=== PATIENT | female | born 1990 | race Two or more races ===

== ENCOUNTER 2023-05-27 22:33 | Inpatient (IN) | payer OTHER, MEDICAID ==
[~2023-05-27] VITALS: Ht 165.1 cm; Wt 95.9 kg
[2023-05-27 23:19] LABS: Basophils # (auto) 0.1 10 ^3/uL (0-0.2); Basophils % (auto) 0.8 % (0.0-2.0); Eosinophils # (auto) 0.1 10 ^3/uL (0-0.8); Eosinophils % (auto) 1.1 % (0.0-7.0); Hematocrit 43.4 % (36.0-46.0); Hemoglobin 14.6 g/dL (12.2-16.2); Lymphocytes % (auto) 24.7 % (10.0-50.0); Mean Corpuscular Hemoglobin 29.7 pg (28.0-32.0); Mean Corpuscular Hgb Conc. 33.6 g/dL (32.0-36.0); Mean Corpuscular Volume 88.3 fL (80.0-100.0); Monocytes # (auto) 0.6 10 ^3/uL (0-1.3); Monocytes % (auto) 7.4 % (0.0-12.0); Neutrophils # (auto) 5.4 10 ^3/uL (1.6-8.6); Red Blood Cells 4.92 10^6/uL (4.0-5.20); Red Cell Distribution Width 12.9 % (11.8-14.3); White Blood Cell 8.1 10^3/uL (4.4-10.8)
[2023-05-27 23:22] VITALS: PULSE 92; RESP 16; O2SAT 97
[2023-05-27 23:35] LABS: Alanine Aminotransferase 42 U/L (7-40); Alkaline Phosphatase 87 U/L (46-116); Anion Gap 5 (5-15); Aspartate Aminotransferase 39 U/L (13-40); BUN/Creatinine Ratio 9.2 (10.0-20.0); Blood Urea Nitrogen 7 mg/dL (9-23); Calcium 8.4 mg/dL (8.7-10.4); Carbon Dioxide 25 mmol/L (20-30); Chloride 106 mmol/L (98-107); Glucose 99 mg/dL (74-106); Lipase 44 U/L (12-53); Magnesium 1.9 mg/dL (1.6-2.6); Potassium 3.7 mmol/L (3.5-5.1); Sodium 136 mmol/L (136-145)
[2023-05-27 23:36] LABS: Albumin 4.2 g/dL (3.2-4.8); Bilirubin, Total 0.5 mg/dL (0.2-1.0); Total Protein 7.5 g/dL (5.7-8.2)
[2023-05-27 23:47] LABS: INR 0.94 (0.9-1.15); Partial Thromboplastin Time 29.1 SEC (24.5-34.5); Prothrombin Time 9.9 sec (9.3-11.8)
[2023-05-28] MEDS ORDERED: LABETALOL HCL 5 MG/ML 4ML SYRINGE IV ONE (01:45)
[2023-05-28] MEDS ORDERED: LIDOCAINE VISCOUS 2% 15ML UD PO ONE (02:00)
[2023-05-28] MEDS ORDERED: ONDANSETRON HCL 4 MG/2 ML VIAL IV ONE ×3 (02:00→07:00)
[2023-05-28] MEDS ORDERED: MAALOX PLUS or MAALOX 30 ML PO ONE (02:00)
[2023-05-28] MEDS ORDERED: PANTOPRAZOLE 40 MG/10 ML VIAL INJ IV ONE (02:00)
[2023-05-28] MEDS ORDERED: MORPHINE SULFATE 4 MG/ML SYR/VIAL IV ONE ×3 (02:00→07:00)
[2023-05-28] MEDS ORDERED: ENALAPRILAT 1.25 MG/ML-1ML VIAL IV ONE (02:15)
[2023-05-28] MEDS ORDERED: IOHEXOL 300 MG/ML 100ML BOTTLE IJ ONE (02:21)
[2023-05-28 06:57] LABS: Urine Bacteria FEW /hpf (None Seen); Urine Blood Negative /uL (Negative); Urine Clarity Clear (Clear); Urine Color Yellow (Yellow); Urine Hyaline Cast FEW /lpf (0 - 2); Urine Mucus FEW (None Seen); Urine Protein, UAD Negative (Negative); Urine Specific Gravity 1.023 (1.001-1.035); Urine Urobilinogen Normal (Negative); Urine WBC 1 /hpf (0 - 5)
[2023-05-28 07:48] VITALS: PULSE 74; RESP 17; O2SAT 95
[2023-05-28] MEDS ORDERED: KETOROLAC TROMETH 30 MG/ML 1ML VIAL IV ONE (09:30)
[2023-05-28] MEDS ORDERED: PANTOPRAZOLE 40 MG TAB PO ONE (09:30)
[2023-05-28] MEDS ORDERED: TAMSULOSIN HYDROCHLORIDE 0.4 MG CAP PO ONE (09:30)
[2023-05-28] MEDS ORDERED: LISINOPRIL 5 MG TAB PO ONE (09:30)
[2023-05-28] MEDS: SODIUM CHLORIDE 0.9% 1,000 ML IV SCH (09:57)
[2023-05-28] MEDS: ENOXAPARIN SOD 40 MG/0.4 ML SYRINGE SC SCH (10:05)
[2023-05-28 10:08] LABS: Triglycerides 102 mg/dL (< 150)
[2023-05-28 10:09] LABS: LDL Cholesterol 143 mg/dL (< 100)
[2023-05-28 10:10] LABS: Cholesterol 198 mg/dL (< 200); HDL Cholesterol 55 mg/dL (40-59)
[2023-05-28] MEDS: hydrALAZINE HCL 20 MG/ML VL IV PRN (11:25)
[2023-05-28 12:00] VITALS: PULSE 74; RESP 17; O2SAT 95
[2023-05-28] MEDS: HYDROcodone-ACET 5/325MG TAB PO PRN ×2 (13:28→19:37)
[2023-05-28] MEDS: ONDANSETRON HCL 4 MG/2 ML VIAL IV PRN ×2 (13:28→20:59)
[2023-05-28] MEDS: KETOROLAC TROMETH 30 MG/ML 1ML VIAL IV PRN (16:57)
[2023-05-28 17:33] VITALS: PULSE 74; RESP 17; O2SAT 95
[2023-05-28] MEDS ORDERED: LABE200T9 PO (17:45)
[2023-05-28 20:00] VITALS: RESP 16
[2023-05-28 22:00] VITALS: BP 150/101; PULSE 90; RESP 16; TEMP 97.6; O2SAT 95
[2023-05-28] MEDS ORDERED: MORPHINE SULFATE INJ 2 MG/ml SYRG IV ONE (22:15)
[2023-05-29] VITALS (7 sets, daily range): BP systolic 130–148; BP diastolic 81–101; PULSE 78–99; RESP 16–20; TEMP 97.8–98.3; O2SAT 97–100
[2023-05-29] MEDS: SODIUM CHLORIDE 0.9% 1,000 ML IV SCH ×2 (02:10→18:36)
[2023-05-29] MEDS: KETOROLAC TROMETH 30 MG/ML 1ML VIAL IV PRN (04:08)
[2023-05-29] MEDS: HYDROcodone-ACET 5/325MG TAB PO PRN ×4 (06:23→21:40)
[2023-05-29] MEDS: ONDANSETRON HCL 4 MG/2 ML VIAL IV PRN ×2 (06:28→12:55)
[2023-05-29 07:00] LABS: Basophils # (auto) 0.1 10 ^3/uL (0-0.2); Eosinophils # (auto) 0.1 10 ^3/uL (0-0.8); Eosinophils % (auto) 2.1 % (0.0-7.0); Hematocrit 39.5 % (36.0-46.0); Hemoglobin 13.2 g/dL (12.2-16.2); Lymphocytes # (auto) 1.5 10 ^3/uL (0.4-5.4); Lymphocytes % (auto) 30.1 % (10.0-50.0); Mean Corpuscular Hemoglobin 29.8 pg (28.0-32.0); Mean Corpuscular Hgb Conc. 33.5 g/dL (32.0-36.0); Mean Corpuscular Volume 88.8 fL (80.0-100.0); Monocytes # (auto) 0.5 10 ^3/uL (0-1.3); Monocytes % (auto) 10.2 % (0.0-12.0); Neutrophils # (auto) 2.9 10 ^3/uL (1.6-8.6); Neutrophils % (auto) 56.6 % (37.0-80.0); Nucleated Red Blood Cells % 0.1 %; Red Blood Cells 4.45 10^6/uL (4.0-5.20); White Blood Cell 5.1 10^3/uL (4.4-10.8)
[2023-05-29 07:23] LABS: Alanine Aminotransferase 39 U/L (7-40); Albumin 3.7 g/dL (3.2-4.8); Alkaline Phosphatase 75 U/L (46-116); Anion Gap 5 (5-15); Aspartate Aminotransferase 32 U/L (13-40); BUN/Creatinine Ratio 10.5 (10.0-20.0); Blood Urea Nitrogen 9 mg/dL (9-23); Calcium 8.6 mg/dL (8.5-10.1); Carbon Dioxide 25 mmol/L (20-30); Chloride 107 mmol/L (98-107); Glucose 90 mg/dL (74-106); Potassium 4.1 mmol/L (3.5-5.1); Sodium 137 mmol/L (136-145)
[2023-05-29 07:24] LABS: Bilirubin, Total 0.4 mg/dL (0.2-1.0); Total Protein 6.5 g/dL (5.7-8.2)
[2023-05-29] MEDS ORDERED: LISINOPRIL 5 MG TAB PO SCH (10:00)
[2023-05-29] MEDS: ENOXAPARIN SOD 40 MG/0.4 ML SYRINGE SC SCH (10:23)
[2023-05-29] MEDS: PANTOPRAZOLE 40 MG TAB PO SCH (10:23)
[2023-05-29] MEDS ORDERED: LISINOPRIL 5 MG TAB PO ONE (11:15)
[2023-05-29] MEDS: MORPHINE SULFATE INJ 2 MG/ml SYRG IV PRN ×2 (12:56→18:29)
[2023-05-29] MEDS: chlordiazePOXIDE HCL 25 MG CAP PO PRN ×2 (12:56→23:35)
[2023-05-29] MEDS: FOLIC ACID 1 MG, MULTIPLE VITAMIN 10 ML, MAGNESIUM SULF SDV 50% 8 MEQ, THIAMINE INJ 100... INJ SCH ×5 (13:06)
[2023-05-29] MEDS: hydrALAZINE HCL 20 MG/ML VL IV PRN (16:46)
[2023-05-29] MEDS: LORazepam 2MG/ML-1ML VIAL IV PRN (17:26)
[2023-05-29] MEDS: TAMSULOSIN HYDROCHLORIDE 0.4 MG CAP PO SCH (18:28)
[2023-05-30] VITALS (9 sets, daily range): BP systolic 139–162; BP diastolic 91–102; PULSE 87–124; RESP 17–20; TEMP 97.8–98.3; O2SAT 96–100
[2023-05-30] MEDS: MORPHINE SULFATE INJ 2 MG/ml SYRG IV PRN ×3 (04:07→20:50)
[2023-05-30] MEDS: LORazepam 2MG/ML-1ML VIAL IV PRN ×2 (05:30→23:12)
[2023-05-30 07:16] LABS: Basophils # (auto) 0.1 10 ^3/uL (0-0.2); Eosinophils # (auto) 0.1 10 ^3/uL (0-0.8); Eosinophils % (auto) 2.8 % (0.0-7.0); Hematocrit 40.6 % (36.0-46.0); Hemoglobin 13.6 g/dL (12.2-16.2); Lymphocytes # (auto) 1.4 10 ^3/uL (0.4-5.4); Lymphocytes % (auto) 26.7 % (10.0-50.0); Mean Corpuscular Hgb Conc. 33.4 g/dL (32.0-36.0); Mean Corpuscular Volume 89.7 fL (80.0-100.0); Monocytes # (auto) 0.5 10 ^3/uL (0-1.3); Monocytes % (auto) 9.8 % (0.0-12.0); Neutrophils # (auto) 3.1 10 ^3/uL (1.6-8.6); Neutrophils % (auto) 59.7 % (37.0-80.0); Nucleated Red Blood Cells % 0.1 %; Red Blood Cells 4.53 10^6/uL (4.0-5.20); Red Cell Distribution Width 12.8 % (11.8-14.3); White Blood Cell 5.1 10^3/uL (4.4-10.8)
[2023-05-30 07:22] LABS: Alanine Aminotransferase 58 U/L (7-40); Alkaline Phosphatase 77 U/L (46-116); Anion Gap 5 (5-15); Calcium 8.2 mg/dL (8.7-10.4); Carbon Dioxide 25 mmol/L (20-30); Chloride 107 mmol/L (98-107); Glucose 93 mg/dL (74-106); Potassium 3.9 mmol/L (3.5-5.1); Sodium 137 mmol/L (136-145)
[2023-05-30 07:23] LABS: Albumin 3.9 g/dL (3.2-4.8); Aspartate Aminotransferase 57 U/L (13-40); Bilirubin, Total 0.5 mg/dL (0.2-1.0); Total Protein 6.8 g/dL (5.7-8.2)
[2023-05-30 07:31] LABS: INR 0.93 (0.9-1.15); Partial Thromboplastin Time 28.8 SEC (24.5-34.5); Prothrombin Time 9.8 sec (9.3-11.8)
[2023-05-30 07:32] LABS: BUN/Creatinine Ratio 6.3 (10.0-20.0); Blood Urea Nitrogen < 5 mg/dL (9-23)
[2023-05-30] MEDS ORDERED: SODIUM CHLORIDE LOCK 10 ML ONE (08:50)
[2023-05-30] MEDS ORDERED: diphenhdrAMINE HCL 50 MG/1 ML VL ONE (08:50)
[2023-05-30] MEDS ORDERED: LIDOCAINE VISCOUS 2% 15ML UD ONE (08:50)
[2023-05-30] MEDS: PANTOPRAZOLE 40 MG TAB PO SCH (08:58)
[2023-05-30] MEDS: LISINOPRIL 5 MG TAB PO SCH (08:58)
[2023-05-30] MEDS: SODIUM CHLORIDE 0.9% 1,000 ML IV SCH (11:30)
[2023-05-30] MEDS: MIDAZOLAM HCL 5 MG/ML-1ML VIAL ONE ×3 (13:10→13:16)
[2023-05-30] MEDS: fentaNYL CITRATE 100 MCG/2 ML VL ONE ×2 (13:10→13:13)
[2023-05-30] MEDS: hydrALAZINE HCL 20 MG/ML VL IV PRN (14:17)
[2023-05-30] MEDS: FOLIC ACID 1 MG, MULTIPLE VITAMIN 10 ML, MAGNESIUM SULF SDV 50% 8 MEQ, THIAMINE INJ 100... INJ SCH ×5 (14:28)
[2023-05-30] MEDS: TAMSULOSIN HYDROCHLORIDE 0.4 MG CAP PO SCH (18:22)
[2023-05-31] MEDS: SODIUM CHLORIDE 0.9% 1,000 ML IV SCH (02:05)
[2023-05-31 05:00] VITALS: BP 151/111; PULSE 103; RESP 16; TEMP 97.6; O2SAT 96
[2023-05-31] MEDS: MORPHINE SULFATE INJ 2 MG/ml SYRG IV PRN (05:29)
[2023-05-31 06:27] LABS: Chloride 108 mmol/L (98-107); Potassium 4.1 mmol/L (3.5-5.1); Sodium 138 mmol/L (136-145)
[2023-05-31 06:28] LABS: Anion Gap 7 (5-15); Calcium 8.6 mg/dL (8.5-10.1); Carbon Dioxide 23 mmol/L (20-30)
[2023-05-31 06:33] LABS: Blood Urea Nitrogen 6 mg/dL (9-23); Glucose 87 mg/dL (74-106)
[2023-05-31 06:36] LABS: Basophils # (auto) 0.1 10 ^3/uL (0-0.2); Basophils % (auto) 0.9 % (0.0-2.0); Eosinophils # (auto) 0.2 10 ^3/uL (0-0.8); Eosinophils % (auto) 2.4 % (0.0-7.0); Hematocrit 40.5 % (36.0-46.0); Hemoglobin 13.7 g/dL (12.2-16.2); Lymphocytes # (auto) 1.7 10 ^3/uL (0.4-5.4); Lymphocytes % (auto) 27.7 % (10.0-50.0); Mean Corpuscular Hemoglobin 29.9 pg (28.0-32.0); Mean Corpuscular Hgb Conc. 33.7 g/dL (32.0-36.0); Mean Corpuscular Volume 88.8 fL (80.0-100.0); Monocytes # (auto) 0.6 10 ^3/uL (0-1.3); Monocytes % (auto) 9.2 % (0.0-12.0); Neutrophils # (auto) 3.8 10 ^3/uL (1.6-8.6); Neutrophils % (auto) 59.8 % (37.0-80.0); Nucleated Red Blood Cells % 0.1 %; Red Blood Cells 4.56 10^6/uL (4.0-5.20); Red Cell Distribution Width 13.1 % (11.8-14.3); White Blood Cell 6.3 10^3/uL (4.4-10.8)
[2023-05-31] MEDS: hydrALAZINE HCL 20 MG/ML VL IV PRN (07:10)
[2023-05-31 08:00] VITALS: PULSE 109; RESP 18; O2SAT 96
[2023-05-31] MEDS: HYDROcodone-ACET 5/325MG TAB PO PRN ×2 (08:10→12:17)
[2023-05-31 09:00] VITALS: BP 139/95; PULSE 109; RESP 19; TEMP 98; O2SAT 95
[2023-05-31] MEDS: PANTOPRAZOLE 40 MG TAB PO SCH (09:48)
[2023-05-31] MEDS: LISINOPRIL 5 MG TAB PO SCH (09:48)
[2023-05-31] MEDS: FOLIC ACID 1 MG, MULTIPLE VITAMIN 10 ML, MAGNESIUM SULF SDV 50% 8 MEQ, THIAMINE INJ 100... INJ SCH ×5 (12:00)
[2023-05-31 13:00] VITALS: BP 145/95; PULSE 117; RESP 18; TEMP 97.7; O2SAT 99
== END 2023-05-31 13:43 | disposition home or self-care (01) | DRG 368 ==
LOC: ER 22:33 → EDBD 22:33 → OVERFLOW 05-28 09:26 → WEST WING 05-28 17:29
PROVIDERS: ADMIT Nurse Practitioner Family; ATTEND Internal Medicine
PROC: 0DB48ZX Excision of Esophagogastric Junction, Via Natural or Artificial Opening Endoscopic, Diagnostic (ICD-10-PCS; 2023-05-30)
PROC: 0DB78ZX Excision of Stomach, Pylorus, Via Natural or Artificial Opening Endoscopic, Diagnostic (ICD-10-PCS; principal; 2023-05-30 13:04)
DX: K20.91 Esophagitis, unspecified with bleeding (principal); K29.71 Gastritis, unspecified, with bleeding; K44.9 Diaphragmatic hernia without obstruction or gangrene; K74.60 Unspecified cirrhosis of liver; N20.0 Calculus of kidney; K76.0 Fatty (change of) liver, not elsewhere classified; E66.01 Morbid (severe) obesity due to excess calories; I10 Essential (primary) hypertension; Y90.9 Presence of alcohol in blood, level not specified; F10.10 Alcohol abuse, uncomplicated; Z88.1 Allergy status to other antibiotic agents; Z88.8 Allergy status to other drugs, medicaments and biological substances; Z90.49 Acquired absence of other specified parts of digestive tract; Z82.49 Family history of ischemic heart disease and other diseases of the circulatory system; Z79.899 Other long term (current) drug therapy; Z68.35 Body mass index [BMI] 35.0-35.9, adult
CPT/HCPCS: 36415; 43239; 76705; 80048; 80053; 80061; 81001; 83036; 83690; 83735; 83880; 84443; 84484; 84702; 85025; 85610; 85730; 93005; C9113; G0378; J1885; J2250; J2405; J3490

== ENCOUNTER 2024-05-03 14:30 | Inpatient (IN) | payer OTHER, MEDICAID ==
[~2024-05-03] VITALS: Ht 167.6 cm; Wt 95.8 kg
[~2024-05-03 14:30] MED LIST: LABE200T9 PO
--- NOTE | 2024-05-03 14:39 | ED.PDOC ---
GI ASSESSMENT HPI Comments 33 y.o female with PMH of HTN and kidney stones, presents to the ED for a chief complaint of RLQ pain associated with nausea and vomiting that started today at 0400. Patient was seen at [facility] around 8am where she had lab work showing a WBC of 11.[address] abdominal and pelvic reading early appendicitis. Patient was transported to [facility] for higher level of care. Patient has received Zosyn, Morphine and Zofran prior to arrival. Patient no longer complains of nausea or vomiting but does state a 9/10 abdominal pain. Time Seen by MD: 14:25 Reviewed Notes: Nurses Notes, Salvationist Notes, Medications, Allergies Allergies: Coded Allergies: Ciprofloxacin (Verified Allergy, Unknown, 05/27/23) Nitrofurantoin (Verified Allergy, Unknown, 05/27/23) Home Meds Reported Medications Labetalol HCl (Labetalol Hydrochloride) 200 Mg Tab, 200 MG PO BID, TAB 05/28/23 Information Source: Patient, Emergency Med Personnel Mode of Arrival: EMS Timing: Hours Duration: Since onset Quality: Sharp Vomitus: Hard Stool: Normal Severity: Moderate Recent: None Pain Location: RLQ Modifying Factors: Nothing Associated sign and symptoms: Nausea, Vomiting, Abdominal Pain Past Medical History PAST MEDICAL HISTORY: HTN, Kidney Stones Surgical History: Cholecystectomy ER MANAGER History: No Pertinent ER MANAGER History Family History Family History: Unknown Social History Smoker: Non-Smoker Alcohol: Denies ETOH Use Drugs: Denies Drug Use Lives In: Home Constitutional: denies: chills, diaphoresis, fatigue, fever, malaise, sweats, weakness, others EENTM: denies: blurred vision, double vision, ear bleeding, ear discharge, ear drainage, ear pain, ear ringing, eye pain, eye redness, hearing loss, mouth pain, mouth swelling, nasal discharge, nose bleeding, nose congestion, nose pain, photophobia, tearing, throat pain, throat swelling, voice changes, others Respiratory: denies: cough, hemoptysis, orthopnea, SOB at rest, shortness of breath, SOB with excertion, stridor, wheezing, others Cardiovascular: denies: chest pain, dizzy spells, diaphoresis, Dyspnea on exertion, edema, irregular heart beat, left arm pain, lightheadedness, p alpitations, PND, syncope, others Gastrointestinal: reports: abdominal pain, nausea, vomiting; denies: abdomen distended, blood streaked bowels, constipated, diarrhea, dysphagia, difficulty swallowing, hematemesis, melena, poor appetite, poor fluid intake, rectal bleeding, rectal pain, others Genitourinary: denies: abnormal vagina bleeding, burning, dyspareunia, dysuria, flank pain, frequency, hematuria, incontinence, pain, , vagina discharge, urgency, others Neurological: denies: dizziness, fainting, headache, left sided numbness, left sided weakness, numbness, paresthesia, pre-existing deficit, right sided numbness, right sided weakness, seizure, speech problems, tingling, tremors, weakness, others Musculoskeletal: denies: back pain, gout, joint pain, joint swelling, muscle pain, muscle stiffness, neck pain, others Integumetry: denies: bruises, change in color, change in hair/nails, dryness, laceration, lesions, lumps, rash, wounds, others Allergic/Immunocompromised: denies: Difficulty Healing, Frequent Infections, Hives, Itching, others Hematologic/Lymphatic: denies: anemia, blood clots, easy bleeding, easy bruising, swollen glands, others Endocrine: denies: excessive hunger, excessive sweating, excessive thirst, excessive urination, flushing, intolerance to cold, intolerance to heat, unexplained weight gain, unexplained weight loss, others Psychiatric: denies: anxiety, bipolar disorder, depression, hopeless, panic disorder, schizophrenia, sleepless, suicidal, others All Other Systems: Reviewed and Negative Physical Exam General Appearance: Moderate Distress HEENT: Normal ENT Inspection, Pharynx Normal, TMs Normal Neck: Full Range of Motion, Non-Tender, Normal, Normal Inspection Respiratory: Chest Non-Tender, Lungs Clear, No Accessory Muscle Use, No Re spiratory Distress, Normal Breath Sounds Cardiovascular: No Edema, No JVD, No Murmur, No Gallop, Normal Peripheral Pulses, Regular Rate/Rhythm Breast Exam: Deferred Gastrointestinal: No Organomegaly, No Pulsatile Mass, Normal Bowel Sounds, RLQ, Soft, Tenderness Genitalia: Deferred Pelvic: Deferred Rectal: Deferred Extremities: No calf tenderness, Normal capillary refill, Normal inspection, Normal range of motion, Non-tender, No pedal edema Musculoskeletal : Apperance: Normal Neurologic: Alert, shape carver II-XII nml as Tested, No Motor Deficits, Normal Affect, Normal Mood, No Sensory Deficits Cerebellar Function: Normal Reflexes: Normal Skin: Dry, Normal Color, Warm Lymphatic: No Adenopathy Was a procedure done? Was a procedure done?: No GI differential Dx Differential Diagnosis: Appendicitis, Electrolyte Imbalance, Food Poisoning X-Ray, Labs, Meds, VS Vital Signs Date Time Temp Pulse Resp B/P (MAP) Pulse Ox O2 Delivery O2 Flow Rate FiO2 05/03/24 14:39 98.2 94 16 130/90 (103) 97 IV Hep-Lock was established The patient was given a normal saline bolus at 500 cc The patient was still having pain so was given morphine 4 mg IV push The patient was given Zofran 4 mg IV push for the nausea At this time, the patient was already received Zosyn IV piggyback We spoke with the surgeon (Dr. Ludwig) The patient is being admitted and will remain NPO The patient understands and agrees with the management The patient's diagnosis is acute appendicitis Time of 1ST Reevaluation: 14:25 Reevaluation 1ST: Unchanged Time of 2ND Reevaluation: 14:30 Patient Education/Counseling: Diagnosis, Treatment, Prognosis Family Education/Counseling: No Family Present Departure 1 Departure Time of Disposition: 15:08 Impression: Primary Impression: Intractable abdominal pain Additional Impression: Acute appendicitis Qualified Codes: K35.80 - Unspecified acute appendicitis Disposition: ADMITTED INPATIENT Admit to: Med Surg Condition: Fair Critical Care Note Critical Care Time?: No Stability Stability form required: Yes Unstable for transfer: ED Physician Assesment (Clinical assesment) I personally scribed for LUIZA MARC MD ([email or web address]) on 05/03/24 at 14:39. Electronically submitted by Yeimi Olea ([facility]). LUIZA MARC MD May 03, 2024 14:39
[2024-05-03 15:00] VITALS: PULSE 80; RESP 14; O2SAT 100
[2024-05-03] MEDS ORDERED: ONDANSETRON HCL 4 MG/2 ML VIAL IV PRN (16:00)
[2024-05-03 16:12] LABS: Partial Thromboplastin Time 25.9 SEC (24.5-34.5); Prothrombin Time 10.6 sec (9.3-11.8)
[2024-05-03] MEDS: SERTRALINE HCL 50 MG TAB PO SCH (16:15)
[2024-05-03] MEDS: SODIUM CHLORIDE 0.9% 500 ML IV ONE (16:16)
[2024-05-03] MEDS: MORPHINE SULFATE 4 MG/ML SYR/VIAL IV ONE (16:37)
[2024-05-03] MEDS: KETOROLAC TROMETH 30 MG/ML 1ML VIAL IV ONE (17:23)
[2024-05-03] MEDS: PANTOPRAZOLE 40 MG/10 ML VIAL INJ IV ONE (18:08)
--- NOTE | 2024-05-03 18:32 | DVHHP2 ---
History of Present Illness Reason for Visit: Appendicitis History of Present Illness 33-year-old female with primary medical history of hypertension and kidney stones presents to the ED for a chief complaint of right lower quadrant pain associated with nausea and vomiting that started today at 4:00 a.m. patient was seen at [facility] where she had lab work showing WBCs 11.[address] abdomen/pelvic which showed early appendicitis. Patient was then transported to [facility] for higher level of care. Patient received Zosyn, morphine and Zofran prior to arrival. Patient no longer complains of nausea or vomiting but does still complain of abdominal pain, currently at the bedside patient states 12/03. Patient denies chest pain, headache, dizziness, diaphoresis, shortness of breath, fever, or chills endorsed by the patient. Patient was admitted for further evaluation medical management. Past Medical History Hypertension and kidney stones Past Surgical History Cholecystectomy Family History Reviewed noncontributory to the management of this case Smoke: No ALCOHOL: rare Drugs: None Lives: with Family Review of Systems Constitutional: No: Fever, Chills, Sweats, Weakness, Malaise, Other Eyes: No: Pain, Vision change, Conjunctivae inflammation, Eyelid inflammation, Other, Redness ENT: No: Ear pain, Ear discharge, Nose pain, Nose discharge, Nose congestion, Mouth pain, Mouth swelling, Throat pain, Throat swelling, Other Respiratory: No: Cough, Dry, Shortness of breath, SOB with excertion, Wheezing, Hemoptysis, Pleuritic Pain, Sputum, Wheezing, Other Cardiovascular: No: Chest Pain, Palpitations, Orthopnea, Paroxysmal Noc. Dyspnea, Edema, Lt Headedness, Other Gastrointestinal: Nausea, Vomiting, Abdominal Pain; No: Diarrhea, Constipation, Melena, Hematochezia, Other Genitourinary: No Dysuria, No Frequency, No Incontinence, No Hematuria, No Retention, No Other Musculoskeletal: No: other, neck pain, shoulder pain, arm pain, back pain, hand pain, leg pain, foot pain Skin: No: Rash, Lesions, Jaundice, Bruising, Other Neurological: No: Weakness, Numbness, Incoordination, Change in speech, Confusion, Seizures, Other Allergies: Coded Allergies: Ciprofloxacin (Verified Allergy, Unknown, 05/27/23) Nitrofurantoin (Verified Allergy, Unknown, 05/27/23) Medications Current Medications Medications Dose Ordered Sig/Lefty Route Start Time Stop Time Status Last Admin Dose Admin Hydromorphone HCl 0.5 mg Q4HPRN PRN IV 05/03/24 16:00 Acetaminophen/ Hydrocodone Bitart 1 tab Q4HPRN PRN PO 05/03/24 16:00 Ondansetron HCl 4 mg Q4HPRN PRN IV 05/03/24 16:00 Sertraline HCl 100 mg DAILY PO 05/03/24 16:00 05/03/24 16:15 100 MG Hydrochlorothiazide 50 mg DAILY PO 05/04/24 10:00 Losartan Potassium 12.5 mg DAILY PO 05/04/24 10:00 Exam Vital Signs Vital Signs Date Time Temp Pulse Resp B/P (MAP) Pulse Ox O2 Delivery O2 Flow Rate FiO2 05/03/24 17:10 85 16 118/80 05/03/24 15:00 100 Room Air* 0 21 05/03/24 15:00 98.0 98.0 General Appearance: Alert, Oriented X3, Cooperative, mild distress HEENT: Atraumatic, PERRLA, EOMI, Mucous membr. moist/pink Respiratory: Clear to auscultation, Normal air movement Cardiovascular: Regular rate, Normal S1, Normal S2, No murmurs Abdominal: Normal bowel sounds, Soft, No tenderness, No hepatospenomegaly, No masses Extremities: No clubbing, No cyanosis, No edema, Normal pulses, No tenderness/swelling Skin: No rashes, No breakdown, No significant lesion Neuro: Normal gait, Normal speech, Strength at 5/5 X4 ext, Normal tone, Sensation intact, Cranial nerves 3-12 NL, Reflexes 2+ Psych/Mental Status: Mental status NL, Mood NL Labs/Xrays Labs, imaging from [facility] reviewed, ED notes reviewed Labs Test 05/03/24 15:00 Range/Units Prothrombin Time 10.6 9.3-11.8 sec Prothrombin Time INR 1.00 0.9-1.15 Activated Partial Thromboplast Time 25.9 24.5-34.5 SEC Assessment/Plan Assessment/Plan Acute appendicitis Admit to medical/surgical Consult surgery- ER physician spoke with Dr. Buchanan Surgery planned for tomorrow NPO after midnight Labs in a.m. Started on antibiotics Pain medications p.r.n. Zofran p.r.n. nausea Chronic hypertension Resume home medication FEN/PPX GI prophylaxis-Protonix IV VTE prophylaxis not indicated Clear liquid diet NPO after midnight Plan discussed with: Patient My Orders Orders - PAWAN BAKER Procedure Category Date Status Time Hydromorphone Hcl Inj PHA 05/03/24 In Process (Dilaudid Innjecti 16:00 Hydrocodone-Acet PHA 05/03/24 In Process 5/325mg Tab (Dawson 16:00 Ondansetron Hcl PHA 05/03/24 In Process (Zofran) 16:00 Sertraline Hcl PHA 05/03/24 In Process (Zoloft) 16:00 Hydrochlorothiazide PHA 05/04/24 In Process Tablet (Hydrochlorot 10:00 Losartan Tablet PHA 05/04/24 In Process (Cozaar Tablet) 10:00 Clear Liq Diet DIET 05/03/24 Transmitted Dinner Admit ADMIT 05/03/24 Transmitted 16:21 Code Status CODE 05/03/24 Transmitted 16:21 Vital Signs [facility] 05/03/24 In Process 16:21 Review Orders With [facility] 05/03/24 In Process Adm.Md 16:21 Up Ad Ketty [facility] 05/03/24 In Process 16:21 Notify Md Of Changes [facility] 05/03/24 In Process From Base 16:21 Advance Directive [facility] 05/03/24 In Process 16:21 Patient Condition ORDERS 05/03/24 Transmitted 16:21 Allergies [facility] 05/03/24 In Process 16:21 Npo After Midnight DIET 05/04/24 Transmitted Breakfast Pantoprazole PHA 05/03/24 Logged (Protonix) 17:45 Pantoprazole PHA 05/04/24 Logged (Protonix) 10:00 Date of Service: May 03, 2024 Billing Provider: PAWAN BAKER Common Visit Codes: [id number] INP/OBS CARE (HIGH) PAWAN BAKER May 03, 2024 18:32
[2024-05-03 19:30] VITALS: PULSE 83; RESP 11; O2SAT 98
[2024-05-03] MEDS: HYDROcodone-ACET 5/325MG TAB PO PRN (19:49)
[2024-05-03 21:58] VITALS: BP 120/70; PULSE 83; RESP 18; TEMP 98.1; O2SAT 96
[2024-05-03] MEDS: HYDROMORPHONE HCL 1 MG/ML INJ IV PRN (22:23)
[2024-05-03 22:52] VITALS: RESP 18
[2024-05-03 22:53] VITALS: BP 120/70; PULSE 83; RESP 18; TEMP 98.1; O2SAT 96
[2024-05-03] MEDS ORDERED: HYDR25TA4 PO (23:26)
[2024-05-03] MEDS ORDERED: HYDR50TA69 PO (23:26)
[2024-05-03] MEDS ORDERED: SERT100T PO (23:26)
[2024-05-03] MEDS ORDERED: TRAZ-228 PO (23:26)
[2024-05-03] MEDS ORDERED: LOSA100T25 PO (23:26)
[2024-05-04] VITALS (7 sets, daily range): BP systolic 102–137; BP diastolic 66–96; PULSE 80–101; RESP 16–19; TEMP 98–99.1; O2SAT 95–100
[2024-05-04 03:27] LABS: Urine Bacteria None Seen /hpf (None Seen)
[2024-05-04 03:33] LABS: Urine Blood Negative /uL (Negative); Urine Clarity Clear (Clear); Urine Color Yellow (Yellow); Urine Mucus FEW (None Seen); Urine Protein, UAD TRACE (Negative); Urine Urobilinogen Normal (Negative); Urine WBC 1 /hpf (0 - 5); Urine pH 6.5 (5.0-9.0)
[2024-05-04 03:40] LABS: Urine Specific Gravity > 1.050 (1.001-1.035)
[2024-05-04 06:31] LABS: Basophils # (auto) 0 10 ^3/uL (0-0.2); Basophils % (auto) 0.7 % (0.0-2.0); Eosinophils # (auto) 0.1 10 ^3/uL (0-0.8); Eosinophils % (auto) 2.3 % (0.0-7.0); Hematocrit 32.1 % (36.0-46.0); Hemoglobin 11.1 g/dL (12.2-16.2); Lymphocytes # (auto) 1.8 10 ^3/uL (0.4-5.4); Lymphocytes % (auto) 28.3 % (10.0-50.0); Mean Corpuscular Hgb Conc. 34.5 g/dL (32.0-36.0); Mean Corpuscular Volume 86.8 fL (80.0-100.0); Monocytes # (auto) 0.5 10 ^3/uL (0-1.3); Monocytes % (auto) 8.3 % (0.0-12.0); Neutrophils # (auto) 3.8 10 ^3/uL (1.6-8.6); Neutrophils % (auto) 60.4 % (37.0-80.0); Nucleated Red Blood Cells % 0.1 %; Platelet Count (auto) 300 10^3/uL (140-450); Red Cell Distribution Width 11.8 % (11.8-14.3); White Blood Cell 6.3 10^3/uL (4.4-10.8)
[2024-05-04 06:48] LABS: Alanine Aminotransferase 19 U/L (7-40); Albumin 3.9 g/dL (3.2-4.8); Alkaline Phosphatase 72 U/L (46-116); Anion Gap 5 (5-15); Aspartate Aminotransferase 20 U/L (13-40); BUN/Creatinine Ratio 10.1 (10.0-20.0); Bilirubin, Total 0.5 mg/dL (0.2-1.0); Blood Urea Nitrogen 11 mg/dL (9-23); Calcium 8.7 mg/dL (8.7-10.4); Carbon Dioxide 27 mmol/L (20-31); Chloride 105 mmol/L (98-107); Glucose 84 mg/dL (74-106); Potassium 3.1 mmol/L (3.5-5.1); Sodium 137 mmol/L (136-145); Total Protein 6.6 g/dL (5.7-8.2)
[2024-05-04] MEDS ORDERED: D5W/SOD CHL 0.45%/KCL 20MEQ 1,000 ML IV ONE (09:00)
[2024-05-04] MEDS: hydroCHLOROthiazide 25 MG TAB PO SCH (10:00)
[2024-05-04] MEDS: PANTOPRAZOLE 40 MG/10 ML VIAL INJ IV SCH (10:00)
[2024-05-04] MEDS: LOSARTAN POTASSIUM 25 MG TAB PO SCH (10:00)
[2024-05-04] MEDS: POTASSIUM CHL 20MEQ/100ML 100 ML IV ONE (10:06)
[2024-05-04] MEDS ORDERED: ceFAZolin 1GM VL ONE (11:55)
[2024-05-04] MEDS ORDERED: LIDOCAINE HCL 100 MG/5ML (2%) SYRG INJ IV ONE (11:55)
[2024-05-04] MEDS ORDERED: fentaNYL CITRATE 100 MCG/2 ML VL ONE (11:55)
[2024-05-04] MEDS ORDERED: MIDAZOLAM HCL 2MG/2ML 2ml VIAL (1mg/ml) ONE (11:55)
[2024-05-04] MEDS ORDERED: DexAMETHasone SOD PHOS 10MG/1ML VIAL INJ ONE (11:55)
[2024-05-04] MEDS ORDERED: PROPOFOL 10 MG/ML 20 ML IV ONE (11:55)
[2024-05-04] MEDS ORDERED: diphenhdrAMINE HCL 50 MG/1 ML VL ONE (11:55)
[2024-05-04] MEDS ORDERED: ROCURONIUM 10MG/ML 10ML VIAL IV ONE (11:55)
[2024-05-04] MEDS ORDERED: ONDANSETRON HCL 4 MG/2 ML VIAL ONE (11:56)
[2024-05-04] MEDS ORDERED: METOCLOPRAMIDE HCL 5MG/ml INJ 2ml VIAL ONE (11:56)
[2024-05-04] MEDS: ceFAZolin 2 GM/D5W100ml 100 ML IV ONE (12:14)
[2024-05-04] MEDS: BUPIVACAINE HCL 50 ML ONE (12:30)
[2024-05-04] MEDS ORDERED: SUGAMMADEX 200mg/2ml Vial (100MG/ML) IV ONE (12:52)
[2024-05-04] MEDS: D5W/SOD CHL 0.45%/KCL 20MEQ 1,000 ML IV SCH (13:00)
[2024-05-04] MEDS ORDERED: HYDROmorphone HCL 2 MG/ML VL/or syr IV PRN ×2 (13:15→14:00)
[2024-05-04] MEDS: ONDANSETRON HCL 4 MG/2 ML VIAL IV ONE (13:15)
[2024-05-04] MEDS: HYDROmorphone HCL 2 MG/ML VL/or syr IV PRN ×2 (13:50→14:58)
[2024-05-04] MEDS ORDERED: ceFAZolin 2 GM/D5W50ml 50 ML IV SCH (14:00)
[2024-05-04] MEDS ORDERED: ONDANSETRON HCL 4 MG/2 ML VIAL IV PRN (14:00)
--- NOTE | 2024-05-04 14:25 | DVHOP ---
DATE OF SURGERY: 05/04/2024 PREOPERATIVE DIAGNOSIS: Appendicitis. POSTOPERATIVE DIAGNOSIS: Appendicitis. SURGEON: Jong Buchanan MD AUCTIONEER TOBACCO: Ulises Campos. ANESTHESIA: General endotracheal. ANESTHESIOLOGIST: Dr. Houser. PROCEDURE: Laparoscopy, laparoscopic appendectomy. DESCRIPTION OF PROCEDURE: Under general endotracheal anesthesia, with the patient's skin prepped and draped supraumbilical incision was made and Veress needle inserted by the hanging drop technique to establish pneumoperitoneum to 15 mmHg pressure by insufflation with carbon dioxide. With the abdomen fully distended, the needle was removed and replaced with a 5 mm trocar port through which a 0-degree viewing laparoscope was inserted under direct vision, additional 5 and 10 mm ports inserted through the midline abdominal wall. Laparoscopy was performed revealing adhesions surrounding the appendix which was acutely inflamed. The adhesions were lysed sharply in order to mobilize the appendix. ____ was placed on tension and traced to its confluence with the cecum at its base. The appendix was divided as it emerged from the cecum with the Endo-KIP stapler equipped with vascular moris. The ____ was then removed from the peritoneal cavity. Right lower quadrant was irrigated, irrigant was aspirated. Hemostasis was meticulously inspected and found to be complete. At the termination of procedure, there was no evidence of bleeding from either the appendicectomy site or from the port sites. Instrumentation was withdrawn. Pneumoperitoneum was evacuated. Fascial defect closed using 0 Vicryl. Wounds approximated using Monocryl sutures, Dermabond glue and Steri-Strips. The patient remained stable throughout the procedure, left the operating room following an accurate needle and Sponge count. No family members were present in the waiting room. Jong Buchanan MD PF TID: [id number] RECEIPT: [id number]
[2024-05-04] MEDS: metroNIDAZOLE 500MG/100ML 100 ML IV SCH (14:30)
--- NOTE | 2024-05-04 16:00 | DVHPN2 ---
Subjective I am assuming the care of the patient from today onwards who was under the care of the hospitalist team. Patient is status post lap appendectomy. Reviewed: Care Plan Changes from previous H/P or p: No Changes Eyes: No Pain, No Vision change, No Conjunctivae inflammation, No Eyelid inflammation, No Other, No Redness ENT: No Ear pain, No Ear discharge, No Nose pain, No Nose discharge, No Nose congestion, No Mouth pain, No Mouth swelling, No Throat pain, No Throat swelling, No Other Cardiovascular: No Chest Pain, No Palpitations, No Orthopnea, No Paroxysmal Noc. Dyspnea, No Edema, No Lt Headedness, No Other Respiratory: No Cough, No Dry, No Shortness of breath, No SOB with excertion, No Wheezing, No Hemoptysis, No Pleuritic Pain, No Sputum, No Other Gastrointestinal: Nausea, Vomiting, Abdominal Pain; No Diarrhea, No Constipation, No Melena, No Hematochezia, No Other Genitourinary: No Dysuria, No Frequency, No Incontinence, No Hematuria, No Retention, No Other Musculoskeletal: No other, No neck pain, No shoulder pain, No arm pain, No back pain, No hand pain, No leg pain, No foot pain Skin: No Rash, No Lesions, No Jaundice, No Bruising, No Other Objective Vitals Vital Signs Date Time Temp Pulse Resp B/P (MAP) Pulse Ox O2 Delivery O2 Flow Rate FiO2 05/04/24 14:58 100 16 137/94 05/04/24 14:07 94 05/04/24 13:07 98.5 98.5 05/04/24 13:07 Room Air 0 99 Intake/Output Intake and Output 05/04/24 07:00 Intake Total 500 ml Output Total 300 ml Balance 200 ml Intake IV Total 500 ml Output Urine Total 300 ml Exam HEENT pupils are reactive Neck is supple CVS S1-S2 regular rate and rhythm Respiratory bilateral clear GI positive bowel sound Extremity no edema HEAD OF PRODUCT no motor deficit Medications Current Medications Medications Dose Ordered Sig/Lefty Route Start Time Stop Time Status Last Admin Dose Admin Acetaminophen/ Hydrocodone Bitart 1 tab Q4HPRN PRN PO 05/03/24 16:00 05/03/24 19:49 1 TAB Sertraline HCl 100 mg DAILY PO 05/03/24 16:00 05/03/24 16:15 100 MG Hydrochlorothiazide 50 mg DAILY PO 05/04/24 10:00 Losartan Potassium 12.5 mg DAILY PO 05/04/24 10:00 Pantoprazole Sodium 40 mg DAILY IV 05/04/24 10:00 Potassium Chloride/Dextrose/ Sod Cl 1,000 ml @ 120 mls/hr Q8H20M IV 05/04/24 13:00 Metronidazole 100 ml @ 100 mls/hr Q8H IV 05/04/24 15:00 05/04/24 14:30 100 MLS/HR Hydromorphone HCl 0.5 mg Q2HPRN PRN IV 05/04/24 14:00 05/04/24 14:58 0.5 MG Ondansetron HCl 4 mg Q4HPRN PRN IV 05/04/24 14:00 Cefazolin Sodium/ Dextrose 50 ml @ 50 mls/hr Q8HR IV 05/04/24 20:30 Labetalol HCl 200 mg BID PO 05/04/24 22:00 UNV Patient Own Medication 1 tab TID PO 05/04/24 22:00 UNV Patient Own Medication 1 tab DAILY PO 05/05/24 10:00 UNV Patient Own Medication 1 tab DAILY PO 05/05/24 10:00 UNV Patient Own Medication 1 tab QPM PO 05/04/24 18:00 UNV Laboratory Results Laboratory Tests 05/04/24 05:10 Chemistry Test 05/04/24 05:10 Albumin 3.9 g/dL (3.2-4.8) Calcium Level 8.7 mg/dL (8.7-10.4) Total Protein 6.6 g/dL (5.7-8.2) LFT Test 05/04/24 05:10 Alanine Aminotransferase (ALT) 19 U/L (7-40) Alkaline Phosphatase 72 U/L (46-116) Aspartate Amino Transferase (AST) 20 U/L (13-40) Total Bilirubin 0.5 mg/dL (0.2-1.0) Urinalysis Test 05/04/24 03:08 Urine Color Yellow (Yellow) Urine Clarity Clear (Clear) Urine pH 6.5 (5.0-9.0) Urine Specific Creole > 1.050 (1.001-1.035) Urine Protein Trace (Negative) H Urine Ketones Negative (Negative) Urine Blood Negative /uL (Negative) Urine Nitrite Negative (Negative) Urine Bilirubin Negative (Negative) Urine Urobilinogen Normal mg/dL (Negative) Urine Leukocyte Esterase Negative /uL (Negative) Urine RBC 6 /hpf (0 - 4) Urine WBC 1 /hpf (0 - 5) Urine Squamous Epithelial Cells Few /hpf (<5) Urine Bacteria None seen /hpf (None Seen) Urine Mucus Few (None Seen) Urine Glucose Normal mg/dL (Normal) Assessment/Plan Assessment/Plan 73-year-old female with a known history of hypertension, history of kidney stones presented to the hospital at [facility] with the abdominal pain nausea and vomiting found to have early appendicitis. Patient was eventually transferred to [facility] for higher level of care. 1. Acute appendicitis status post lap appendectomy 2. Abdominal pain nausea and vomiting resolved secondary to 1. 3. Hypertension -continue pain meds as needed, diet as tolerated, General surgery follow up -resume home medications. -discharge plan Plan discussed with: Patient My Orders Orders - BRYANNA HOLLIS MD Procedure Category Date Status Time Labetalol Hcl Tablet PHA 05/04/24 Logged (Normodyne Tablet) 22:00 (Nf) Hydroxyzine Hcl PHA 05/04/24 Logged 22:00 (Nf) Losartan PHA 05/05/24 Logged Potassium & Hydrochlo 10:00 (Nf) Sertraline Hcl PHA 05/05/24 Logged (Zoloft) 10:00 (Nf) Trazodone Hcl PHA 05/04/24 Logged 18:00 Date of Service: May 04, 2024 Billing Provider: BRYANNA HOLLIS MD Common Visit Codes: [id number] INP/OBS CARE(MOD) BRYANNA HOLLIS MD May 04, 2024 16:00
[2024-05-04] MEDS: ceFAZolin 2 GM/D5W50ml 50 ML IV SCH (20:05)
[2024-05-04] MEDS: LABETALOL HCL 200 MG TAB PO SCH (21:27)
[2024-05-04] MEDS: hydrOXYzine 25 MG TAB or CAP PO SCH (21:29)
[2024-05-04] MEDS: traZODone HCL 50 MG TAB PO SCH (21:29)
[2024-05-05] VITALS (7 sets, daily range): BP systolic 97–127; BP diastolic 58–93; PULSE 76–91; RESP 16–18; TEMP 97.8–99; O2SAT 95–100
[2024-05-05 04:39] LABS: Basophils # (auto) 0 10 ^3/uL (0-0.2); Basophils % (auto) 0.2 % (0.0-2.0); Eosinophils # (auto) 0 10 ^3/uL (0-0.8); Hematocrit 32.6 % (36.0-46.0); Hemoglobin 11.5 g/dL (12.2-16.2); Lymphocytes # (auto) 1.1 10 ^3/uL (0.4-5.4); Lymphocytes % (auto) 11.2 % (10.0-50.0); Mean Corpuscular Hemoglobin 30.3 pg (28.0-32.0); Mean Corpuscular Hgb Conc. 35.2 g/dL (32.0-36.0); Mean Corpuscular Volume 86.2 fL (80.0-100.0); Monocytes # (auto) 0.6 10 ^3/uL (0-1.3); Monocytes % (auto) 6.2 % (0.0-12.0); Neutrophils # (auto) 8.4 10 ^3/uL (1.6-8.6); Neutrophils % (auto) 82.4 % (37.0-80.0); Platelet Count (auto) 345 10^3/uL (140-450); Red Blood Cells 3.79 10^6/uL (4.0-5.20); Red Cell Distribution Width 11.7 % (11.8-14.3); White Blood Cell 10.2 10^3/uL (4.4-10.8)
[2024-05-05 04:41] LABS: Alanine Aminotransferase 22 U/L (7-40); Albumin 3.9 g/dL (3.2-4.8); Alkaline Phosphatase 85 U/L (46-116); Anion Gap 6 (5-15); Aspartate Aminotransferase 26 U/L (13-40); BUN/Creatinine Ratio 8.4 (10.0-20.0); Bilirubin, Total 0.3 mg/dL (0.2-1.0); Blood Urea Nitrogen 7 mg/dL (9-23); Calcium 8.8 mg/dL (8.7-10.4); Carbon Dioxide 24 mmol/L (20-31); Chloride 107 mmol/L (98-107); Glucose 91 mg/dL (74-106); Magnesium 1.8 mg/dL (1.6-2.6); Potassium 3.9 mmol/L (3.5-5.1); Sodium 137 mmol/L (136-145); Total Protein 6.7 g/dL (5.7-8.2)
--- NOTE | 2024-05-05 07:22 | DVHINCON2 ---
DATE OF CONSULTATION: 05/04/2024 SURGICAL CONSULTATION HISTORY OF PRESENT ILLNESS: The patient is being evaluated for possible appendectomy. She is a 33-year-old female who has had abdominal pain for the last month. The pain steadily increased until it was intolerable yesterday and she presented to [facility] in [place], where she was evaluated and had a CT scan done, which demonstrated acute appendicitis. The patient was transferred to this facility for definitive treatment. She has a history of hypertension and lithotripsy for a left kidney stone. The patient has a previous cholecystectomy done at [facility]. 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 REVIEW OF SYSTEMS: With the exception of nausea, vomiting, and abdominal pain, there is no contributory information on 12 systems reviewed. PHYSICAL EXAMINATION: GENERAL: Reveals well-developed, well-nourished female, in mild distress. HEENT: Pupils are equal, round, react to light equally. Sclerae nonicteric. Extraocular motion is intact. Uvula midline. Trachea midline. Carotids are full without bruits. Jugular veins are collapsed. HEART: Regular rate and rhythm without murmur or gallop. ABDOMEN: Tender in the right lower quadrant with rebound tenderness and guarding. There is no palpable organomegaly. LABORATORY DATA: The patient's PT and PTT are normal. DIAGNOSES: Acute appendicitis. ASSESSMENT AND PLAN: The risks, potential complications of laparoscopic, possibly open appendectomy were discussed in great detail with the patient. Jong Buchanan MD PF TID: [id number] RECEIPT: [id number]
[2024-05-05] MEDS: Losartan Potassium & Hydrochlo (Hyzaar) 1 TAB PO SCH (10:00)
[2024-05-05] MEDS: SERTRALINE HCL 50 MG TAB PO SCH (10:50)
--- NOTE | 2024-05-05 14:24 | DVHPN2 ---
Progress Note Date Seen: May 05, 2024 Medical Necessity Reason Pt with a Central, PICC or Fol: No Subjective Patient reports: No new complaints, Feels better Review of Systems: HEENT:Normal, CVS:Normal, RESPIRATORY:Normal, GI:Normal, :Normal, MSK:Normal, NEURO:Normal Objective vital signs Vital Sign Date Time Temp Pulse Resp B/P (MAP) Pulse Ox O2 Delivery O2 Flow Rate FiO2 05/05/24 11:52 99.0 91 16 113/80 (91) 98 99.0 05/05/24 08:00 Room Air* 0 21 Total Intake and Output 05/04/24 05/04/24 05/05/24 15:00 23:00 07:00 Intake Total 110 ml 400 ml 240 ml Output Total 400 ml 0 ml Balance 110 ml 0 ml 240 ml medications Current Medications Medications Dose Ordered Sig/Lefty Route Start Time Stop Time Status Last Admin Dose Admin Acetaminophen/ Hydrocodone Bitart 1 tab Q4HPRN PRN PO 05/03/24 16:00 05/05/24 13:12 1 TAB Pantoprazole Sodium 40 mg DAILY IV 05/04/24 10:00 05/05/24 10:49 40 MG Potassium Chloride/Dextrose/ Sod Cl 1,000 ml @ 120 mls/hr Q8H20M IV 05/04/24 13:00 05/05/24 07:01 120 MLS/HR Metronidazole 100 ml @ 100 mls/hr Q8H IV 05/04/24 15:00 05/05/24 07:17 100 MLS/HR Hydromorphone HCl 0.5 mg Q2HPRN PRN IV 05/04/24 14:00 05/05/24 10:51 0.5 MG Ondansetron HCl 4 mg Q4HPRN PRN IV 05/04/24 14:00 Cefazolin Sodium/ Dextrose 50 ml @ 50 mls/hr Q8HR IV 05/04/24 20:30 05/05/24 06:06 50 MLS/HR Hydroxyzine Pamoate 50 mg TID PO 05/04/24 22:00 05/05/24 13:39 50 MG Patient Own Medication 1 tab DAILY PO 05/05/24 10:00 Sertraline HCl 100 mg DAILY PO 05/05/24 10:00 05/05/24 10:50 100 MG Trazodone HCl 100 mg QPM PO 05/04/24 18:00 05/04/24 21:29 100 MG Examination: GENERAL:Normal, HEENT:Normal, NECK:Normal, LUNGS:Normal, CVS:Normal, ABDOMEN:Normal laboratory and microbiology Laboratory Tests 05/05/24 03:31 Test 05/05/24 03:31 Range/Units Serum Glucose 91 74-106 mg/dL Problem List/Assessment/Plan Problem List/Assessment/Plan 05/05/24 wounds clean dry and intact, abdomen soft, non distended, appropriately tender, some pain , patient to ambulate, advance diet, ok to discharger per surgery in 24 hours, send home with antibiotics patient to follow up in clinic in two weeks Plan discussed with: Patient, Other JENELLE PAREDES [employer]ING [employer] May 05, 2024 14:24
[2024-05-05] MEDS ORDERED: AUG875T PO (14:54)
[2024-05-05] MEDS ORDERED: HYDR-4902 PO (14:55)
[2024-05-05] MEDS ORDERED: NALO4SPR2 (14:55)
--- NOTE | 2024-05-05 15:22 | DVHDS2 ---
Discharge Summary Date of Admission May 03, 2024 at 16:21 Date of Discharge: May 05, 2024 Labs/Diagnostic Data: Laboratory Results Test 05/05/24 03:31 05/04/24 05:10 05/04/24 03:08 05/03/24 15:00 White Blood Count 10.2 10^3/uL (4.4-10.8) Red Blood Count 3.79 10^6/uL (4.0-5.20) Hemoglobin 11.5 g/dL (12.2-16.2) Hematocrit 32.6 % (36.0-46.0) Mean Corpuscular Volume 86.2 fL (80.0-100.0) Mean Corpuscular Hemoglobin 30.3 pg (28.0-32.0) Mean Corpuscular Hemoglobin Concent 35.2 g/dL (32.0-36.0) Red Cell Distribution Width 11.7 % (11.8-14.3) Platelet Count 345 10^3/uL (140-450) Mean Platelet Volume 7.9 fL (6.9-10.8) Neutrophils (%) (Auto) 82.4 % (37.0-80.0) Lymphocytes (%) (Auto) 11.2 % (10.0-50.0) Monocytes (%) (Auto) 6.2 % (0.0-12.0) Eosinophils (%) (Auto) 0.0 % (0.0-7.0) Basophils (%) (Auto) 0.2 % (0.0-2.0) Neutrophils # (Auto) 8.4 10 ^3/uL (1.6-8.6) Lymphocytes # (Auto) 1.1 10 ^3/uL (0.4-5.4) Monocytes # (Auto) 0.6 10 ^3/uL (0-1.3) Eosinophils # (Auto) 0 10 ^3/uL (0-0.8) Basophils # (Auto) 0 10 ^3/uL (0-0.2) Nucleated Red Blood Cells 0.0 % Sodium Level 137 mmol/L (136-145) Potassium Level 3.9 mmol/L (3.5-5.1) Chloride Level 107 mmol/L (98-107) Carbon Dioxide Level 24 mmol/L (20-31) Anion Gap 6 (5-15) Blood Urea Nitrogen 7 mg/dL (9-23) Creatinine 0.83 mg/dL (0.550-1.02) Glomerular Filtration Rate Calc 95 mL/min (>90) BUN/Creatinine Ratio 8.4 (10.0-20.0) Serum Glucose 91 mg/dL (74-106) Calcium Level 8.8 mg/dL (8.7-10.4) Magnesium Level 1.8 mg/dL (1.6-2.6) Total Bilirubin 0.3 mg/dL (0.2-1.0) Aspartate Amino Transferase (AST) 26 U/L (13-40) Alanine Aminotransferase (ALT) 22 U/L (7-40) Alkaline Phosphatase 85 U/L (46-116) Total Protein 6.7 g/dL (5.7-8.2) Albumin 3.9 g/dL (3.2-4.8) Beta HCG, Quantitative 0.1 mIU/mL (1.5-4.2) Urine Color Yellow (Yellow) Urine Clarity Clear (Clear) Urine pH 6.5 (5.0-9.0) Urine Specific [place] > 1.050 (1.001-1.035) Urine Protein Trace (Negative) Urine Ketones Negative (Negative) Urine Blood Negative /uL (Negative) Urine Nitrite Negative (Negative) Urine Bilirubin Negative (Negative) Urine Urobilinogen Normal mg/dL (Negative) Urine Leukocyte Esterase Negative /uL (Negative) Urine RBC 6 /hpf (0 - 4) Urine WBC 1 /hpf (0 - 5) Urine Squamous Epithelial Cells Few /hpf (<5) Urine Bacteria None seen /hpf (None Seen) Urine Mucus Few (None Seen) Urine Glucose Normal mg/dL (Normal) Prothrombin Time 10.6 sec (9.3-11.8) Prothrombin Time INR 1.00 (0.9-1.15) Activated Partial Thromboplast Time 25.9 SEC (24.5-34.5) Other Laboratory Tests 05/05/24 03:31 Brief Hx & Hospital Course: Continue on female with known history of hypertension, anxiety disorder, chronic insomnia initially presented to hospitalization amlodipine nausea vomiting presented at [facility]. Patient was diagnosed with acute appendicitis. Eventually patient was transferred to higher level of care at [facility] found continuation of care and surgical interventions. Patient underwent laparoscopic appendectomy. Dr. Buchanan cleared the patient to be discharged on p.o. antibiotics and pain pills. Patient currently stable to be discharged as she was tolerating diet. Please return to ER if he has any consent. He was found to be Dr. Buchanan intwo weeks. Condition at Discharge: Stable Final Diagnosis/Problems List 1. Acute appendicitis status post lap appendectomy 2. Abdominal pain nausea and vomiting resolved secondary to 1. 3. Hypertension 4. Anxiety disorder 5. Chronic insomnia Discharge Disposition: Home SNF Discharge Will this Physician continue t: No Discharge Instruct/Medications Diet: Cardiac 2g Na,low cholest Activity: See Comment Activity comment: No driving, no signing of legal documents, no planning on heavy machinery while on narcotics Follow Up/Referral: Follow up with the PCP in 1-2 weeks Follow up with Dr. Buchanan in 1-2 weeks Medications: Augmentin, [place], Narcan as prescribed Discharge Statement: "Patient was advised to return to the ER or call 911 if any headaches, dizziness, shortness of breath, chest pain, abdominal pain, bleeding, fevers, or worsening of medical condition. Patient was counseled about treatment plan, medications, possible side effects, patientverbalized understanding. All questions were answered to the best of my ability. This discharge took greater then 30 minutes in planning, reviewing documentation, counseling the patient, and discussing with other team members." ASSESSMENT ASSESSMENT Assessment 1. Acute appendicitis status post lap appendectomy 2. Abdominal pain nausea and vomiting resolved secondary to 1. 3. Hypertension 4. Anxiety disorder 5. Chronic insomnia Date of Service: May 05, 2024 Billing Provider: BRYANNA HOLLIS MD Common Visit Codes: 67077-EYI/OBS DISCH DAY >30min BRYANNA HOLLIS MD May 05, 2024 15:22
[2024-05-06 01:00] VITALS: BP 108/65; PULSE 61; RESP 18; TEMP 98.1; O2SAT 98
[2024-05-06 05:00] VITALS: BP 138/86; PULSE 83; RESP 18; TEMP 98.1; O2SAT 99
[2024-05-06 08:00] VITALS: RESP 15
[2024-05-06 08:40] LABS: Hepatitis B Surface Antigen Negative (Negative)
[2024-05-06 09:00] VITALS: BP 111/83; PULSE 73; RESP 21; TEMP 98.3; O2SAT 95
[2024-05-06 09:02] LABS: Hepatitis C Antibody Negative (Negative)
[2024-05-06 09:18] VITALS: BP 113/80; PULSE 91; TEMP 36.8
== END 2024-05-06 10:55 | disposition home or self-care (01) | DRG 399 ==
LOC: EDBD 14:30 → ER 14:30 → OVERFLOW 16:21 → CENTRAL 21:58
PROVIDERS: ADMIT Registered Nurse General Practice; ATTEND Internal Medicine
PROC: 0DTJ4ZZ Resection of Appendix, Percutaneous Endoscopic Approach (ICD-10-PCS; principal; 2024-05-04 12:14)
DX: K35.80 Unspecified acute appendicitis (principal); I10 Essential (primary) hypertension; F41.9 Anxiety disorder, unspecified; F51.04 Psychophysiologic insomnia; Z87.442 Personal history of urinary calculi; Z88.1 Allergy status to other antibiotic agents; Z90.49 Acquired absence of other specified parts of digestive tract
CPT/HCPCS: 36415; 80053; 81001; 83735; 84702; 85025; 85610; 85730; 86803; 86850; 86900; 86901; 87070; 87075; 87205; 87340; G0378; J0690; J1100; J1885; J2250; J2405; J2470; J2704; J3480; J3490

== ENCOUNTER 2024-12-21 16:57 | Inpatient (IN) | payer MEDICAID, OTHER ==
[~2024-12-21] VITALS: Ht 167.6 cm; Wt 87.2 kg
[~2024-12-21 16:57] MED LIST changes: +AUG875T PO; +HYDR-4902 PO; +HYDR50TA69 PO; +LOSA100T25 PO; +NALO4SPR2; +SERT100T PO; +TRAZ-228 PO
--- NOTE | 2024-12-21 17:05 | ECG ---
[facility] Test Date: 2024-12-21 Test Time: 17:04:26 Pat Name: MARY BETH MORALES Department: ER Room: Gender: F Cobol Programmer: AJ : 1990 Requested By: ALBER CHANG Order Number: [id number] Reading MD: Fabrizio Puckett Measurements Intervals [place] Rate: 125 P: 59 [place]: 126 QRS: 10 QRSD: 85 T: 53 QT: 342 QTc: 494 Interpretive Statements Sinus tachycardia Borderline prolonged QT interval Electronically Signed On 12-21-2024 20:17:07 PDT by Fabrizio Puckett Please click the below link to view image of tracing.
--- NOTE | 2024-12-21 17:34 | ED.PDOC ---
HPI Comments 34y F who presents to the ED for chief complaint of palpitations. - pt states she has been having palpitations for the past 3 months - pt states she is in the and relocated and has past history of HTN and prescribed losartan/HCTZ combination drug - pt states she has been out of her medications for the past 3 months and has been having palpitations with dizziness - pt states she has noticed recently after waking from nap over the past few months, she has been having dizzy spells with associated palpitations - pt otherwise has been taking caffeine, energy drinks and pre-workout over the past few months - pt is also taking wegovy at this time - pt in the ED, has noted heart rate of 122 and BP of 165/127 and 163/128 on repeat measurement with otherwise stable vitals - pt otherwise denies any other symptoms at this time past medical history: HTN, kidney stones past surgical history: appendectomy, cholecystectomy, lithotripsy allergies: denies medications: HCTZ/ losartan social history: denies tobacco use, denies ETOH use, denies drug use HPI: Poor Historian. REVIEW OF SYSTEMS: CONSTITUTIONAL: Denies acute: fever, diaphoresis, chills, generalized weakness. HEAD: Denies acute: headache, photophobia Eyes: Denies acute: Double vision, vision loss, eye pain, eye discharge. EARS: Denies acute: tinnitus, hearing loss, ear discharge, ear pain, THROAT: Denies acute: sore throat, swelling, difficulty swallowing , pain with swallowing, change in voice. NECK: Denies acute: neck pain, neck swelling, stiff neck. HEART: Denies acute : chest pain, LUNGS: Denies acute: SOB, wheezing, cough, hemoptysis ABDOMEN: Denies acute: abdominal pain, Nausea, Vomiting, diarrhea, melena , hematemesis, hematochezia SKIN: Denies acute: rash, redness, lesions, itchiness. EXTREMITIES: Denies acute: calf pain, numbness, tingling, weakness, denies pain in extremity. Denies acute: Low back pain. Neuro: Denies acute: focal neurological deficit, motor or sensory focal neurological deficit, tremors, seizure like activity, confusion, dizziness, change in mental status, loss of bowel or bladder function, cauda equina like symptoms. : Denies acute: dysuria, hematuria, flank pain, increase in urinary frequency. PSYCH: Denies acute: hallucination, suicidal ideation, homicidal ideation. FEMALE: Denies acute: abnormal vaginal bleeding, foul odor, unusual discharge. PHYSICAL EXAM: General: ---mild-----acute distress, awake and alert. Head: normocephalic, atraumatic. Neck: supple, trachea is midline, no swelling. Throat: Normal phonation. Eyes:, no erythema, no purulent discharge, no proptosis, no icterus. Heart: regular tachycardic, no significant murmur appreciated. Lungs: no apparent respiratory distress, Able to speak in full sentences. No wheezing, no rhonchi, no crackles. No stridors Clear to auscultation bilaterally. Abdomen: non tender to palpation, non distended, soft, no guarding, no rebound, + bowel sounds. Neuro: Awake, Alert, oriented to name, self, situation, follows commands GCS=15. Speech is normal. Skin: no petechia, no purpura, no cyanosis, non-pale, not jaundice. Lower extremities: --no - Pitting edema no deformity, no focal swelling, no calf TTP. Makes eye contact. moves all four extremities. Face: no apparent facial droop. Ambulating in the ED independently. ED COURSE: DISCLAIMER: This medical document was created using an electronic medical record system with voice recognition software and computerized dictation system. Although this document has been carefully reviewed, there might still be some phonetic and typographical errors. Occasional wrong-word or "sound-alike" substitutions may have occurred due to the inherent limitations of voice recognition software. These areas are purely typographical due to imperfections of the software programs and do not reflect any compromise in the patient's medical care. Please read the chart carefully and recognize, using context, where these substitutions have occurred. Chief Complaint: Palpitations Time Seen by MD: 17:02 Reviewed Notes: Medications, Allergies Allergies: Coded Allergies: Ciprofloxacin (Verified Allergy, Unknown, 05/27/23) Nitrofurantoin (Verified Allergy, Unknown, 05/27/23) Home Meds Active Scripts Hydrocodone-Acetaminophen (Hydrocodone Bitartrate/AC 5-325 mg) 1 Tab Tab, 1 TAB PO Q6HP PRN, #10 TAB Prov:BRYANNA HOLLIS MD 12/23/24 Cefdinir (Cefdinir) 300 Mg Cap, 1 CAP PO BID for 3 Days, #6 CAP Prov:BRYANNA HOLLIS MD 12/23/24 Hctz (Hydrochlorothiazide) 25 Mg Tab, 25 MG GT DAILY, #30 TAB Prov:BRYANNA HOLLIS MD 12/23/24 Labetalol HCl (Labetalol HCl) 200 Mg Tab, 100 MG PO Q12HR for 30 Days, #30 TAB Prov:BRYANNA HOLLIS MD 12/23/24 Naloxone HCl (Narcan) 4 Mg/0.1 Ml Spr, 4 MG NA [employer] [place], #2 SPRAY Prov:BRYANNA HOLLIS MD 05/05/24 Reported Medications Prazosin Hcl (Minipres) 1 Mg Cp, 1 CAP PO QPM, #30 CAP 2 Refills 12/22/24 Sertraline Hcl (Zoloft) 100 Mg Tab, 1 TAB PO DAILY, #30 TAB 5 Refills 05/03/24 Trazodone Hcl (Trazodone Hcl) 100 Mg Tab, 1 TAB PO QPM, #30 TAB 1 Refill 05/03/24 Hydroxyzine Hcl (Hydroxyzine Hcl) 50 Mg Tab, 1 TAB PO TID, #90 TAB 2 Refills 05/03/24 Discontinued Reported Medications Losartan Potassium & Hydrochlo (Hyzaar) 1 Tab Tab, 1 TAB PO DAILY, #30 TAB 5 Refills 05/03/24 Information Source: Patient Mode of Arrival: Ambulatory Past Medical History PAST MEDICAL HISTORY: HTN, Kidney Stones Surgical History: Cholecystectomy 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 Was a procedure done?: No CP Differential Dx Differential Diagnosis: A-fib, A-Flutter, Angina, Anxiety / Panic Attack, Atrial Dysrhythmia, AV Block 1st Degree, AV Block 2nd Degree, AV Block 3rd Degree, Digoxin Toxicity, Electrolyte Disorder, Heart Failure, Hyperthyroidism, Hyperventilation, Hypoxia, MAT, LA, PAC's, PSVT, Pulmonary Embolus, PVC's, Renal Failure, Sinus Tachycardia, Torsades De Pointes, Ventricular Dysrhythmia, V-Fib, V-Tach, WPW X-Ray, Labs, Meds, VS Vital Signs Date Time Temp Pulse Resp B/P (MAP) Pulse Ox O2 Delivery O2 Flow Rate FiO2 12/21/24 22:30 106 22 130/89 (103) 96 12/21/24 22:15 105 21 134/96 (109) 97 12/21/24 22:00 110 15 145/105 (118) 98 12/21/24 22:00 105 131/93 12/21/24 22:00 145/105 12/21/24 21:45 114 19 133/93 (106) 98 12/21/24 21:30 101 23 150/106 (121) 96 12/21/24 21:15 108 16 144/100 (115) 95 12/21/24 21:00 102 16 161/119 (133) 98 12/21/24 21:00 144/100 12/21/24 21:00 161/119 12/21/24 20:45 102 18 161/119 (133) 98 12/21/24 20:45 161/119 12/21/24 20:35 97 12/21/24 20:17 102 149/105 12/21/24 19:40 92 18 97 Room Air* 0 21 12/21/24 19:30 99.2 92 18 161/115 (130) 97 99.2 12/21/24 18:54 97 169/102 12/21/24 18:53 97 169/102 12/21/24 18:37 97 22 168/117 (134) 97 12/21/24 18:31 101 18 186/140 (155) 98 12/21/24 18:06 103 176/133 12/21/24 18:06 103 176/133 12/21/24 18:00 103 16 176/133 (147) 98 12/21/24 17:36 120 16 98 Room Air* 0 12/21/24 17:36 120 177/127 12/21/24 17:05 99.2 122 18 165/127 (140) 97 99.2 163/128 (140) 12/21/24 17:04 125 Lab Test 12/21/24 18:14 12/21/24 17:05 12/21/24 17:00 Range/Units Troponin I High Sensitivity 4 4 </=34 ng/L White Blood Count 11.4 H 4.4-10.8 10^3/uL Red Blood Count 4.91 4.0-5.20 10^6/uL Hemoglobin 14.8 12.2-16.2 g/dL Hematocrit 42.8 36.0-46.0 % Mean Corpuscular Volume 87.2 80.0-100.0 fL Mean Corpuscular Hemoglobin 30.1 28.0-32.0 pg Mean Corpuscular Hemoglobin Concent 34.5 32.0-36.0 g/dL Red Cell Distribution Width 13.1 11.8-14.3 % Platelet Count 400 140-450 10^3/uL Mean Platelet Volume 7.9 6.9-10.8 fL Neutrophils (%) (Auto) 66.6 37.0-80.0 % Lymphocytes (%) (Auto) 22.4 10.0-50.0 % Monocytes (%) (Auto) 9.8 0.0-12.0 % Eosinophils (%) (Auto) 0.5 0.0-7.0 % Basophils (%) (Auto) 0.7 0.0-2.0 % Neutrophils # (Auto) 7.6 1.6-8.6 10 ^3/uL Lymphocytes # (Auto) 2.6 0.4-5.4 10 ^3/uL Monocytes # (Auto) 1.1 0-1.3 10 ^3/uL Eosinophils # (Auto) 0.1 0-0.8 10 ^3/uL Basophils # (Auto) 0.1 0-0.2 10 ^3/uL Nucleated Red Blood Cells 0.1 % Sodium Level 141 136-145 mmol/L Potassium Level 3.6 3.5-5.1 mmol/L Chloride Level 101 98-107 mmol/L Carbon Dioxide Level 26 20-31 mmol/L Anion Gap 14 5-15 Blood Urea Nitrogen 11 9-23 mg/dL Creatinine 1.08 H 0.550-1.02 mg/dL Glomerular Filtration Rate Calc 69 >90 mL/min BUN/Creatinine Ratio 10.2 10.0-20.0 Serum Glucose 97 74-106 mg/dL Calcium Level 9.8 8.7-10.4 mg/dL Magnesium Level 1.4 L 1.6-2.6 mg/dL Total Bilirubin 0.5 0.2-1.0 mg/dL Aspartate Amino Transferase (AST) 39 H <34 U/L Alanine Aminotransferase (ALT) 31 7-40 U/L Alkaline Phosphatase 89 46-116 U/L Total Protein 8.2 5.7-8.2 g/dL Albumin 4.8 3.2-4.8 g/dL Urine Color Yellow Yellow Urine Clarity Hazy H Clear Urine pH 8.0 5.0-9.0 Urine Specific [place] 1.022 1.001-1.035 Urine Protein 1+ H Negative Urine Ketones Negative Negative Urine Blood Negative Negative /uL Urine Nitrite 2+ H Negative Urine Bilirubin Negative Negative Urine Urobilinogen Normal Negative mg/dL Urine Leukocyte Esterase 1+ Negative /uL Urine RBC 1 0 - 4 /hpf Urine Microscopic WBC 26 H 0-5 /HPF Urine Squamous Epithelial Cells Few <5 /hpf Urine Amorphous Crystals Few None Seen /hpf Urine Bacteria Few H None Seen /hpf Urine Mucus Few None Seen Urine Glucose Normal Normal mg/dL Urine Test Negative Negative Urine Opiates Screen Neg NEGATIVE Urine Fentanyl Screen Neg NEGATIVE Urine Barbiturates Screen Neg NEGATIVE Urine Phencyclidine Screen Neg NEGATIVE Urine Amphetamines Screen Neg NEGATIVE Urine Benzodiazepines Screen Neg NEGATIVE Urine Cocaine Screen Neg NEGATIVE Urine Cannabinoids Screen Neg NEGATIVE Microbiology Date/Time Source Procedure Growth Status 12/21/24 17:00 Voided Urine Urine Culture - Final Complete [place] [id number] Ph: [phone] DIAGNOSTIC IMAGING Diagnostic Imaging Report : [id number] Signed PATIENT: MARY BETH MORALESACCT: [id number] UNIT: [id number] : 1990 LOC: ER ROOM / BED: / AGE / SEX: 34 / F ADM STATUS: REG ER SERVICE 1826 ORDERING PHYSICIAN: ALBER CHANG DO PROCEDURE(s): HWOCT - HEAD WITHOUT CONTRAST REASON: HTN ORDER NUMBER(s): [id number], ACCESSION NUMBER(s): [id number] EXAM: CT HEAD WITHOUT CONTRAST INDICATION: HTN TECHNIQUE: CT of the head without intravenous contrast. Radiation Dose : 1. Head: CT Dose: CTDI volume is 53.99 mGy. Dose-length product is 863.9 mGy*cm The dose indicators for CT are the volume Computed Tomography (CT) Dose Index (CTDIvol) and the Dose Length Product (DLP), and are measured in units of mGy and mGy-cm, respectively. These indicators are not patient dose, but values generated from the CT scanner acquisition factors. The report includes radiation exposure data for exposures received during this examination. COMPARISON: None FINDINGS: There is no evidence of acute intracranial hemorrhage, extra-axial collection, mass effect, midline shift, herniation or hydrocephalus. The ventricles, sulci and cisterns are age appropriate. The nicole-white differentiation is intact. The visualized paranasal sinuses and mastoid air cells are clear. The surrounding soft tissues and osseous structures are unremarkable. IMPRESSION: No acute intracranial abnormality. Radiation optimization: All CT scans at this facility use at least one of these dose optimization techniques: automated exposure control mA and/or kV adjustment per patient size (includes targeted exams where dose is matched to clinical indication) or iterative reconstruction. ATED BY: ADAL CLEMENT MD DICTATED DATE/TIME: 12/21/241907 SIGNED BY: ADAL CLEMENT MD SIGNED DATE/TIME: 12/21/241907 CC: [place] [address] Ph: [phone] DIAGNOSTIC IMAGING Diagnostic Imaging Report : [id number] Signed PATIENT: MARY BETH MORALESACCT: [id number] UNIT: [id number] : 1990 LOC: ER ROOM / BED: / AGE / SEX: 34 / F ADM STATUS: REG ER SERVICE 08 ORDERING PHYSICIAN: ALBER CHANG DO PROCEDURE(s): CXRP - CHEST PORTABLE REASON: Palpitations, tachycardic, hypertension ORDER NUMBER(s): [id number], ACCESSION NUMBER(s): [id number] CHEST RADIOGRAPH Indication: Palpitations, tachycardic, hypertension Technique: Single frontal view of the chest was obtained Comparison: None FINDINGS: Lines and Tubes: None Lungs: No focal consolidation. Pleura: No effusion. No pneumothorax. Cardiomediastinal contours: Unremarkable Bones: No acute osseous abnormality. IMPRESSION: 1. No acute cardiopulmonary disease. ATED BY: ALFREDITO QUINN Jr., DO DICTATED DATE/TIME: 12/21/241818 SIGNED BY: ALFREDITO QUINN Jr., SIGNED DATE/TIME: 12/21/241818 CC: Time of 1ST Reevaluation: 00:00 Reevaluation 1ST: N/A Patient Education/Counseling: Diagnosis, Treatment Family Education/Counseling: No Family Present Comments Patient presented with the above HPI.------workup was initiated. patient was found with the above mentioned diagnosis. the following medications were ordered: please refer to order lists of meds and tests obtained by myself Dr. Chang. Patient ED course and VS have been stabilized. Patient has been reassessed in the ED and remained in a stable condition. Pertinent incidental findings were discussed with the patient and/or family. Patient/family voices understanding and is agreeable with plan. Patient has been observed in the ED adequate length of time to insure improvement/stability. Escalation of care considered: Consideration of escalation to observation or admission Patient was ADMITTED to the medicine team for further evaluation and treatment of their presentation. All the reports of any imaging studies that were ordered by myself were reviewed by myself. SEPSIS Sepsis Screen Physician Orders Electrocardigram (12/21/24 17:02) Electrocardigram (12/21/24 18:02) Electrocardigram (12/21/24 20:02) [employer] (12/21/24 ) Chest Portable (12/21/24 17:09) Head Without Contrast (12/21/24 18:26) Code Status (12/21/24 20:53) Oxygen Per Hour (12/21/24 20:53) Vital Signs Date Time Temp Pulse Resp B/P (MAP) Pulse Ox O2 Delivery O2 Flow Rate FiO2 12/21/24 22:30 106 22 130/89 (103) 96 12/21/24 22:15 105 21 134/96 (109) 97 12/21/24 22:00 110 15 145/105 (118) 98 12/21/24 22:00 105 131/93 12/21/24 22:00 145/105 12/21/24 21:45 114 19 133/93 (106) 98 12/21/24 21:30 101 23 150/106 (121) 96 12/21/24 21:15 108 16 144/100 (115) 95 12/21/24 21:00 102 16 161/119 (133) 98 12/21/24 21:00 144/100 12/21/24 21:00 161/119 12/21/24 20:45 102 18 161/119 (133) 98 12/21/24 20:45 161/119 12/21/24 20:35 97 12/21/24 20:17 102 149/105 12/21/24 19:40 92 18 97 Room Air* 0 21 12/21/24 19:30 99.2 92 18 161/115 (130) 97 99.2 12/21/24 18:54 97 169/102 12/21/24 18:53 97 169/102 12/21/24 18:37 97 22 168/117 (134) 97 12/21/24 18:31 101 18 186/140 (155) 98 12/21/24 18:06 103 176/133 12/21/24 18:06 103 176/133 12/21/24 18:00 103 16 176/133 (147) 98 12/21/24 17:36 120 16 98 Room Air* 0 21 12/21/24 17:36 120 177/127 12/21/24 17:05 99.2 122 18 165/127 (140) 97 99.2 163/128 (140) 12/21/24 17:04 125 Laboratory Tests Test 12/21/24 17:05 White Blood Count 11.4 10^3/uL (4.4-10.8) H Departure 1 Departure Time of Disposition: 17:51 Impression: Primary Impression: UTI (urinary tract infection) Additional Impressions: Sinus tachycardia Palpitations Hypertensive crisis Thyroid disease Disposition: 09 ADMITTED INPATIENT Admit to: Tele Condition: Guarded e-Prescriptions Hydrocodone-Acetaminophen (Hydrocodone Bitartrate/AC 5-325 mg) 1 Tab Tab 1 TAB PO Q6HP PRN, #10 TAB Prov: BRYANNA HOLLIS MD 12/23/24 Cefdinir (Cefdinir) 300 Mg Cap 1 CAP PO BID for 3 Days, #6 CAP Prov: BRYANNA HOLLIS MD 12/23/24 Hctz (Hydrochlorothiazide) 25 Mg Tab 25 MG GT DAILY, #30 TAB Prov: BRYANNA HOLLIS MD 12/23/24 Labetalol HCl (Labetalol HCl) 200 Mg Tab 100 MG PO Q12HR for 30 Days, #30 TAB Prov: BRYANNA HOLLIS MD 12/23/24 Discharged With: Self Critical Care Note Critical Care Time?: Yes (45 min-critical care time only) Heart Score Heart Score: Heart Score Response (Comments) Value History Slightly Suspicious 0 EKG Normal 0 Age <45 0 Risk Factors 1 or 2 risk factors 1 Troponin Normal limit 0 Total 1 I personally scribed for ALBER CHANG DO ([email or web address]) on 12/21/24 at 17:34. Electronically submitted by Deb Moss ([facility]). I personally scribed for ALBER CHANG DO ([email or web address]) on 12/21/24 at 17:36. Electronically submitted by Deb Moss ([facility]). I personally scribed for ALBER CHANG DO ([email or web address]) on 12/21/24 at 21:31. Electronically submitted by Deb Moss ([facility]). I personally scribed for ALBER CHANG DO ([email or web address]) on 12/21/24 at 22:02. Electronically submitted by Deb Moss ([facility]). ALBER CHANG DO Dec 21, 2024 17:34
[2024-12-21 17:36] VITALS: PULSE 120; RESP 16; O2SAT 98
[2024-12-21] MEDS: LABETALOL HCL 20 MG/4 ML VL IV ONE ×3 (17:36→18:53)
[2024-12-21 17:38] LABS: Urine Amorphous Crystal FEW /hpf (None Seen); Urine Bacteria FEW /hpf (None Seen); Urine Blood Negative /uL (Negative); Urine Mucus FEW (None Seen); Urine Protein, UAD 1+ (Negative); Urine Specific Gravity 1.022 (1.001-1.035); Urine Squamous Epithelial Cell FEW /hpf (<5); Urine Urobilinogen Normal (Negative); Urine WBC 26 /HPF (0-5)
[2024-12-21 17:39] LABS: Urine Clarity Hazy (Clear); Urine Color Yellow (Yellow)
[2024-12-21 17:44] LABS: Amphetamine Screen, Urine Neg (NEGATIVE); Barbiturate Scree,Urine Neg (NEGATIVE); Benzodiazephine Screen, Urine Neg (NEGATIVE); Cannabinoid Screen, Urine Neg (NEGATIVE); Cocaine Screen, Urine Neg (NEGATIVE); Opiate Scree,Urine Neg (NEGATIVE); Phencyclidine Screen, Urine Neg (NEGATIVE)
[2024-12-21 18:05] LABS: Basophils # (auto) 0.1 10 ^3/uL (0-0.2); Basophils % (auto) 0.7 % (0.0-2.0); Eosinophils # (auto) 0.1 10 ^3/uL (0-0.8); Eosinophils % (auto) 0.5 % (0.0-7.0); Hematocrit 42.8 % (36.0-46.0); Hemoglobin 14.8 g/dL (12.2-16.2); Lymphocytes # (auto) 2.6 10 ^3/uL (0.4-5.4); Lymphocytes % (auto) 22.4 % (10.0-50.0); Mean Corpuscular Hemoglobin 30.1 pg (28.0-32.0); Mean Corpuscular Hgb Conc. 34.5 g/dL (32.0-36.0); Mean Corpuscular Volume 87.2 fL (80.0-100.0); Monocytes # (auto) 1.1 10 ^3/uL (0-1.3); Monocytes % (auto) 9.8 % (0.0-12.0); Neutrophils # (auto) 7.6 10 ^3/uL (1.6-8.6); Neutrophils % (auto) 66.6 % (37.0-80.0); Nucleated Red Blood Cells % 0.1 %; Platelet Count (auto) 400 10^3/uL (140-450); Red Blood Cells 4.91 10^6/uL (4.0-5.20); Red Cell Distribution Width 13.1 % (11.8-14.3); White Blood Cell 11.4 10^3/uL (4.4-10.8)
[2024-12-21] MEDS: SODIUM CHLORIDE 0.9% 1,000 ML IV ONE (18:06)
[2024-12-21] MEDS: cefTRIAXone 1GM/50ML D5W 50 ML IV ONE (18:06)
[2024-12-21 18:16] LABS: Alanine Aminotransferase 31 U/L (7-40); Albumin 4.8 g/dL (3.2-4.8); Alkaline Phosphatase 89 U/L (46-116); Anion Gap 14 (5-15); BUN/Creatinine Ratio 10.2 (10.0-20.0); Bilirubin, Total 0.5 mg/dL (0.2-1.0); Blood Urea Nitrogen 11 mg/dL (9-23); Calcium 9.8 mg/dL (8.7-10.4); Carbon Dioxide 26 mmol/L (20-31); Chloride 101 mmol/L (98-107); Glucose 97 mg/dL (74-106); Potassium 3.6 mmol/L (3.5-5.1); Sodium 141 mmol/L (136-145); Total Protein 8.2 g/dL (5.7-8.2)
[2024-12-21 18:20] LABS: Aspartate Aminotransferase 39 U/L (<34); Magnesium 1.4 mg/dL (1.6-2.6)
--- NOTE | 2024-12-21 18:22 | DVH ---
CHEST RADIOGRAPH Indication: Palpitations, tachycardic, hypertension Technique: Single frontal view of the chest was obtained Comparison: None FINDINGS: Lines and Tubes: None Lungs: No focal consolidation. Pleura: No effusion. No pneumothorax. Cardiomediastinal contours: Unremarkable Bones: No acute osseous abnormality. IMPRESSION: 1. No acute cardiopulmonary disease.
--- NOTE | 2024-12-21 19:11 | DVH ---
EXAM: CT HEAD WITHOUT CONTRAST INDICATION: HTN TECHNIQUE: CT of the head without intravenous contrast. Radiation Dose : 1. Head: CT Dose: CTDI volume is 53.99 mGy. Dose-length product is 863.9 mGy*cm The dose indicators for CT are the volume Computed Tomography (CT) Dose Index (CTDIvol) and the Dose Length Product (DLP), and are measured in units of mGy and mGy-cm, respectively. These indicators are not patient dose, but values generated from the CT scanner acquisition factors. The report includes radiation exposure data for exposures received during this examination. COMPARISON: None FINDINGS: There is no evidence of acute intracranial hemorrhage, extra-axial collection, mass effect, midline s hift, herniation or hydrocephalus. The ventricles, sulci and cisterns are age appropriate. The nicole-white differentiation is intact. The visualized paranasal sinuses and mastoid air cells are clear. The surrounding soft tissues and osseous structures are unremarkable. IMPRESSION: No acute intracranial abnormality. Radiation optimization: All CT scans at this facility use at least one of these dose optimization joy hniques: automated exposure control mA and/or kV adjustment per patient size (includes targeted exam s where dose is matched to clinical indication) or iterative reconstruction.
[2024-12-21 19:40] VITALS: PULSE 92; RESP 18; O2SAT 97
[2024-12-21] MEDS: NICARDIPINE HCL IN SODIUM CHLO 200 ML IV SCH (20:45)
[2024-12-21] MEDS ORDERED: ACETAMINOPHEN 325 MG TAB PO PRN (21:00)
[2024-12-21] MEDS ORDERED: hydrALAZINE HCL 20 MG/ML VL IV PRN (21:00)
[2024-12-21] MEDS: amLODIPine BESYLATE 5 MG TAB PO ONE (21:00)
[2024-12-21] MEDS: HYDROcodone-ACET 5/325MG TAB PO ONE (21:42)
[2024-12-21] MEDS: traZODone HCL 50 MG TAB PO SCH (22:00)
[2024-12-21] MEDS: LABETALOL HCL 200 MG TAB PO SCH (22:00)
[2024-12-21] MEDS: SODIUM CHLOR 0.9% PF (SALINE LOCK) 10ML VIAL/SYR IV SCH (22:24)
--- NOTE | 2024-12-21 22:33 | DVHHP2 ---
History of Present Illness Reason for Visit: Hypertensive crisis History of Present Illness The patient is a 34-year-old female with past medical history of diabetes mellitus and kidney stone who presented to [facility] ED with complaint of palpitations. Patient reports she has been experiencing palpitation for the past 3 months, associated with dizzy spells, admit to taking caffeine, energy drinks, and pre workout over the past few months. Patient was seen and evaluated in the ED, laboratory data shows WBC 11.4, platelets 400, sodium 141, potassium 3.5, BUN 11, creatinine 1.08, glucose 97, troponin four, AST 39, ALT 31, blood pressure 186/140 trending down to 149/105, heart rate 125 trending down to 102, temperature 99.2 F, O2 saturation 98% on room air. Urinalysis positive for urinary tract infection. Patient was given labetalol 10 mg IV, started on IV antibiotic regimen Rocephin, please see medication orders section in the computer. On my assessment, patient denies chest pain, no headache, no dizziness, no diaphoresis, no shortness of breath, no nausea, no vomiting, no fever, no chills. Patient was admitted for further evaluation and medical management. Past Medical History HTN, Kidney Stones Past Surgical History Appendectomy, cholecystectomy, lithotripsy Family History Reviewed, noncontributory to the management of this case. Past Social History The patient lives at home, denies smoking, alcohol or illicit drugs abuse. Review of Systems Constitutional: No: Fever, Chills, Sweats, Weakness, Malaise, Other Eyes: No: Pain, Vision change, Conjunctivae inflammation, Eyelid inflammation, Other, Redness ENT: No: Ear pain, Ear discharge, Nose pain, Nose discharge, Nose congestion, Mouth pain, Mouth swelling, Throat pain, Throat swelling, Other Respiratory: No: Cough, Dry, Shortness of breath, SOB with excertion, Wheezing, Hemoptysis, Pleuritic Pain, Sputum, Wheezing, Other Cardiovascular: Palpitations, Other (Dizzy spells); No: Chest Pain, Orthopnea, Paroxysmal Noc. Dyspnea, Edema, Lt Headedness Gastrointestinal: No: Nausea, Vomiting, Abdominal Pain, Diarrhea, Constipation, Melena, Hematochezia, Other Genitourinary: No Dysuria, No Frequency, No Incontinence, No Hematuria, No Retention, No Other Musculoskeletal: No: other, neck pain, shoulder pain, arm pain, back pain, hand pain, leg pain, foot pain Skin: No: Rash, Lesions, Jaundice, Bruising, Other Neurological: Other (Dizziness); No: Weakness, Numbness, Incoordination, Change in speech, Confusion, Seizures Allergies: Coded Allergies: Ciprofloxacin (Verified Allergy, Unknown, 05/27/23) Nitrofurantoin (Verified Allergy, Unknown, 05/27/23) Medications Current Medications Medications Dose Ordered Sig/Lefty Route Start Time Stop Time Status Last Admin Dose Admin Nicardipine/ Sodium Chloride 200 ml @ 50 mls/hr Q4H IV 12/21/24 20:45 12/21/24 21:00 50 MLS/HR Ceftriaxone Sodium 50 ml @ 100 mls/hr DAILY@1800 IV 12/22/24 18:00 Labetalol HCl 100 mg Q12HR PO 12/21/24 22:00 Amlodipine Besylate 5 mg DAILY PO 12/22/24 10:00 Hydralazine HCl 10 mg Q6HP PRN IV 12/21/24 21:00 Aspirin 81 mg DAILY PO 12/22/24 10:00 Trazodone HCl 100 mg HS PO 12/21/24 22:00 Sertraline HCl 100 mg DAILY PO 12/22/24 10:00 Sodium Chloride 10 ml Q8HR IV 12/21/24 22:00 12/21/24 22:24 10 ML Acetaminophen/ Hydrocodone Bitart 1 tab Q4HP PRN PO 12/21/24 21:00 Ondansetron HCl 4 mg Q4HP PRN IV 12/21/24 21:00 Docusate Sodium 100 mg BIDPRN PRN PO 12/21/24 21:00 Acetaminophen 650 mg Q6HP PRN PO 12/21/24 21:00 Exam Vital Signs Vital Signs Date Time Temp Pulse Resp B/P (MAP) Pulse Ox O2 Delivery O2 Flow Rate FiO2 12/21/24 21:00 161/119 12/21/24 20:35 97 12/21/24 19:40 18 97 Room Air* 0 21 12/21/24 19:30 99.2 99.2 General Appearance: Alert, Oriented X3, Cooperative, No acute distress HEENT: Atraumatic, PERRLA, EOMI, Mucous membr. moist/pink Respiratory: Clear to auscultation, Normal air movement Cardiovascular: Regular rate, Normal S1, Normal S2, No murmurs Abdominal: Normal bowel sounds, Soft, No tenderness, No hepatospenomegaly, No masses Extremities: No clubbing, No cyanosis, No edema, Normal pulses, No tenderness/swelling Skin: No rashes, No breakdown, No significant lesion Neuro: Normal gait, Normal speech, Strength at 5/5 X4 ext, Normal tone, Sensation intact, Cranial nerves 3-12 NL, Reflexes 2+ Psych/Mental Status: Mental status NL, Mood NL Labs/Xrays Labs Test 12/21/24 18:14 12/21/24 17:05 12/21/24 17:00 Range/Units Troponin I High Sensitivity 4 </=34 ng/L White Blood Count 11.4 H 4.4-10.8 10^3/uL Red Blood Count 4.91 4.0-5.20 10^6/uL Hemoglobin 14.8 12.2-16.2 g/dL Hematocrit 42.8 36.0-46.0 % Mean Corpuscular Volume 87.2 80.0-100.0 fL Mean Corpuscular Hemoglobin 30.1 28.0-32.0 pg Mean Corpuscular Hemoglobin Concent 34.5 32.0-36.0 g/dL Red Cell Distribution Width 13.1 11.8-14.3 % Platelet Count 400 140-450 10^3/uL Mean Platelet Volume 7.9 6.9-10.8 fL Neutrophils (%) (Auto) 66.6 37.0-80.0 % Lymphocytes (%) (Auto) 22.4 10.0-50.0 % Monocytes (%) (Auto) 9.8 0.0-12.0 % Eosinophils (%) (Auto) 0.5 0.0-7.0 % Basophils (%) (Auto) 0.7 0.0-2.0 % Neutrophils # (Auto) 7.6 1.6-8.6 10 ^3/uL Lymphocytes # (Auto) 2.6 0.4-5.4 10 ^3/uL Monocytes # (Auto) 1.1 0-1.3 10 ^3/uL Eosinophils # (Auto) 0.1 0-0.8 10 ^3/uL Basophils # (Auto) 0.1 0-0.2 10 ^3/uL Nucleated Red Blood Cells 0.1 % Sodium Level 141 136-145 mmol/L Potassium Level 3.6 3.5-5.1 mmol/L Chloride Level 101 98-107 mmol/L Carbon Dioxide Level 26 20-31 mmol/L Anion Gap 14 5-15 Blood Urea Nitrogen 11 9-23 mg/dL Creatinine 1.08 H 0.550-1.02 mg/dL Glomerular Filtration Rate Calc 69 >90 mL/min BUN/Creatinine Ratio 10.2 10.0-20.0 Serum Glucose 97 74-106 mg/dL Calcium Level 9.8 8.7-10.4 mg/dL Magnesium Level 1.4 L 1.6-2.6 mg/dL Total Bilirubin 0.5 0.2-1.0 mg/dL Aspartate Amino Transferase (AST) 39 H <34 U/L Alanine Aminotransferase (ALT) 31 7-40 U/L Alkaline Phosphatase 89 46-116 U/L Total Protein 8.2 5.7-8.2 g/dL Albumin 4.8 3.2-4.8 g/dL Urine Color Yellow Yellow Urine Clarity Hazy H Clear Urine pH 8.0 5.0-9.0 Urine Specific [place] 1.022 1.001-1.035 Urine Protein 1+ H Negative Urine Ketones Negative Negative Urine Blood Negative Negative /uL Urine Nitrite 2+ H Negative Urine Bilirubin Negative Negative Urine Urobilinogen Normal Negative mg/dL Urine Leukocyte Esterase 1+ Negative /uL Urine RBC 1 0 - 4 /hpf Urine Microscopic WBC 26 H 0-5 /HPF Urine Squamous Epithelial Cells Few <5 /hpf Urine Amorphous Crystals Few None Seen /hpf Urine Bacteria Few H None Seen /hpf Urine Mucus Few None Seen Urine Glucose Normal Normal mg/dL Urine Test Negative Negative Urine Opiates Screen Neg NEGATIVE Urine Fentanyl Screen Neg NEGATIVE Urine Barbiturates Screen Neg NEGATIVE Urine Phencyclidine Screen Neg NEGATIVE Urine Amphetamines Screen Neg NEGATIVE Urine Benzodiazepines Screen Neg NEGATIVE Urine Cocaine Screen Neg NEGATIVE Urine Cannabinoids Screen Neg NEGATIVE PATIENT: MARY BETH MORALESACCT: [id number] UNIT: [id number] : 1990 LOC: ER ROOM / BED: / AGE / SEX: 34 / F ADM STATUS: REG ER SERVICE 1826 ORDERING PHYSICIAN: ALBER CHANG DO PROCEDURE(s): HWOCT - HEAD WITHOUT CONTRAST REASON: HTN ORDER NUMBER(s): [id number], ACCESSION NUMBER(s): [id number] EXAM: CT HEAD WITHOUT CONTRAST INDICATION: HTN TECHNIQUE: CT of the head without intravenous contrast. Radiation Dose: 1. Head: CT Dose: CTDI volume is 53.99 mGy. Dose-length product is 863.9 mGy*cm The dose indicators for CT are the volume Computed Tomography (CT) Dose Index (CTDIvol) and the Dose Length Product (DLP), and are measured in units of mGy and mGy-cm, respectively. These indicators are not patient dose, but values generated from the CT scanner acquisition factors. The report includes radiation exposure data for exposures received during this examination. COMPARISON: None FINDINGS: There is no evidence of acute intracranial hemorrhage, extra-axial collection, mass effect, midline shift, herniation or hydrocephalus. The ventricles, sulci and cisterns are age appropriate. The nicole-white differentiation is intact. The visualized paranasal sinuses and mastoid air cells are clear. The surrounding soft tissues and osseous structures are unremarkable. IMPRESSION: No acute intracranial abnormality. ORDERING PHYSICIAN: ALBER CHANG DO PROCEDURE(s): CXRP - CHEST PORTABLE REASON: Palpitations, tachycardic, hypertension ORDER NUMBER(s): [id number], ACCESSION NUMBER(s): [id number] CHEST RADIOGRAPH Indication: Palpitations, tachycardic, hypertension Technique: Single frontal view of the chest was obtained Comparison: None FINDINGS: Lines and Tubes: None Lungs: No focal consolidation. Pleura: No effusion. No pneumothorax. Cardiomediastinal contours: Unremarkable Bones: No acute osseous abnormality. IMPRESSION: 1. No acute cardiopulmonary disease. Assessment/Plan Assessment/Plan Hypertensive crisis Sinus tachycardia Palpitations UTI (urinary tract infection) Plan 1. Admit to telemetry unit 2. Breathing treatment 3. Pain control management 4. IV antibiotic management 5. Management of fluids and electrolytes 6. Consultation for Cardiology/hospitalist 7. Diagnostic test chest x-ray 8. DVT prophylaxis-on aspirin 9. Repeat labs CBC, CMP in a.m. 10. Home medication reviewed and reconciled 11. Continue with current medical management 12. Treatment plan discussed with patient and RN. Patient verbalized understanding. Plan discussed with: Patient, Other (RN) My Orders Orders - BRAYDEN REN DNP Procedure Category Date Status Time Urine Bacterial ANDRES 12/21/24 In Process Culture 20:53 Ceftriaxone 1gm/50ml PHA 12/22/24 In Process D5w (Rocephin) 18:00 Labetalol Hcl Tablet PHA 12/21/24 In Process (Normodyne Tablet) 22:00 Amlodipine Tablet PHA 12/22/24 In Process (Norvasc Tablet) 10:00 Hydralazine Injection PHA 12/21/24 In Process (Apresoline Inject 21:00 Aspirin Tablet PHA 12/22/24 In Process 10:00 Trazodone Hcl PHA 12/21/24 In Process (Desyrel) 22:00 Sertraline Hcl PHA 12/22/24 In Process (Zoloft) 10:00 Allergies ERIKA 12/21/24 In Process 20:53 Code Status CODE 12/21/24 Transmitted 20:53 Sodium Chloride Lock PHA 12/21/24 In Process (Saline Lock Ns) 22:00 Oxygen Per Hour RT 12/21/24 Transmitted 20:53 Hydrocodone-Acet PHA 12/21/24 In Process 5/325mg Tab ([place] 21:00 Ondansetron Hcl PHA 12/21/24 In Process (Zofran) 21:00 Docusate Sodium PHA 12/21/24 In Process Capsule (Colace 21:00 Complete Blood Count LAB 12/22/24 Verified 04:00 Comprehensive LAB 12/22/24 Verified Metabolic Panel 04:00 Cardiac DIET 12/22/24 Transmitted Diet-2gna,Lofat,Lochol Breakfast Condition: Serious ERIKA 12/21/24 In Process 20:53 Acetaminophen Tablet PHA 12/21/24 In Process (Tylenol Tablet) 21:00 Bedrest With Bathroom ERIKA 12/21/24 In Process Privileg 20:53 Sequential ERIKA 12/21/24 In Process Compression Device Admit ADMIT 12/21/24 Verified 22:32 Nitroglycerin PHA 12/21/24 Verified Sublingual (Ntrostat 22:45 Morphine Sulfate PHA 12/21/24 Verified Injection 22:45 Stat Ekg For Chest ERIKA 12/21/24 Verified Pain 22:32 Notify Of Changes ERIKA 12/21/24 Verified From Base 22:32 Polysomnography Tech For ERIKA 12/21/24 Verified 24 Hours 22:32 Emergency Dysrhythmia ERIKA 12/21/24 Verified Protocol 22:32 Rhythm Strips Once ERIKA 12/21/24 Verified Every Shift 22:32 Oxygen By Nasal RT 12/21/24 Verified Cannula 22:32 Problem List: (1) Hypertensive crisis (2) Sinus tachycardia (3) Palpitations (4) UTI (urinary tract infection) Date of Service: Dec 21, 2024 Billing Provider: BRAYDEN REN DNP Common Visit Codes: [id number] INP/OBS CARE (HIGH) BRAYDEN REN DNP Dec 21, 2024 22:33
[2024-12-21] MEDS ORDERED: NITROGLYCERIN 0.4 MG SL TAB SL PRN (22:45)
[2024-12-22] MEDS: MORPHINE SULFATE INJ 2 MG/ml SYRG IV PRN (00:22)
[2024-12-22] MEDS: ONDANSETRON HCL 4 MG/2 ML VIAL IV PRN (00:22)
[2024-12-22] MEDS ORDERED: cloNIDine HCL 0.1 MG TAB PO PRN (02:30)
[2024-12-22] MEDS: HYDROcodone-ACET 5/325MG TAB PO PRN (05:07)
[2024-12-22 05:37] LABS: Basophils # (auto) 0.1 10 ^3/uL (0-0.2); Basophils % (auto) 0.7 % (0.0-2.0); Eosinophils # (auto) 0.1 10 ^3/uL (0-0.8); Eosinophils % (auto) 1.6 % (0.0-7.0); Hematocrit 38.8 % (36.0-46.0); Hemoglobin 13.6 g/dL (12.2-16.2); Lymphocytes # (auto) 2.3 10 ^3/uL (0.4-5.4); Lymphocytes % (auto) 31.7 % (10.0-50.0); Mean Corpuscular Hemoglobin 30.7 pg (28.0-32.0); Mean Corpuscular Hgb Conc. 35.2 g/dL (32.0-36.0); Mean Corpuscular Volume 87.2 fL (80.0-100.0); Monocytes # (auto) 0.8 10 ^3/uL (0-1.3); Monocytes % (auto) 10.3 % (0.0-12.0); Neutrophils # (auto) 4.1 10 ^3/uL (1.6-8.6); Neutrophils % (auto) 55.7 % (37.0-80.0); Nucleated Red Blood Cells % 0.4 %; Platelet Count (auto) 344 10^3/uL (140-450); Red Blood Cells 4.45 10^6/uL (4.0-5.20); Red Cell Distribution Width 13.4 % (11.8-14.3); White Blood Cell 7.3 10^3/uL (4.4-10.8)
[2024-12-22 05:56] LABS: Alanine Aminotransferase 23 U/L (7-40); Albumin 4.2 g/dL (3.2-4.8); Alkaline Phosphatase 78 U/L (46-116); Calcium 8.9 mg/dL (8.7-10.4); Carbon Dioxide 27 mmol/L (20-31); Chloride 102 mmol/L (98-107); Glucose 98 mg/dL (74-106)
[2024-12-22 05:57] LABS: Anion Gap 12 (5-15); Aspartate Aminotransferase 29 U/L (<34); Bilirubin, Total 0.6 mg/dL (0.2-1.0); Blood Urea Nitrogen 13 mg/dL (9-23); Sodium 141 mmol/L (136-145); Total Protein 7.3 g/dL (5.7-8.2)
[2024-12-22 06:04] LABS: Potassium 3.1 mmol/L (3.5-5.1)
[2024-12-22 08:36] VITALS: BP 132/95; PULSE 114; RESP 16; TEMP 98.1; O2SAT 96
[2024-12-22] MEDS: ASPirin 81 mg TAB PO SCH (09:21)
[2024-12-22] MEDS: amLODIPine BESYLATE 5 MG TAB PO SCH (09:24)
[2024-12-22] MEDS: SERTRALINE HCL 50 MG TAB PO SCH (09:33)
--- NOTE | 2024-12-22 11:46 | DVHSR ---
APPROVED REPORT EXAM: Two-dimensional and M-mode echocardiogram with Doppler and color Doppler. Blood Pressure: 136/103 mmHg INDICATION Chest Pain Hypertensive crisis RISK FACTORS Height: 5'6", Weight: 189 DIMENSIONS LVDd5.5 (3.8-5.7cm)LA (2D)3.6 (1.9-4.0cm)Aortic Root3.8 (2.0-3.7cm) LVDs4.0 (2.5-4.0cm)LA (MM) (1.9-4.0cm)Aortic Cusp Exc2.0 (1.5-2.0cm) EF (%) 50.0 (55-70%)Rt. Atrium3.1 (1.9-4.0cm)Asc. Aorta cm IVSd0.9 (0.7-1.1cm)RV (D) (1.8-2.4cm) PWd0.8 (0.7-1.1cm) Mitral Valve MitralMitral Stenosis E wave0.67m/sMV Mean GR.mmHg A wave0.93m/sMV Peak GR.mmHg E/A ratio0.72D MVAcm2 DECEL [id number] 1/2 Timems Aortic Valve Aortic ValveAortic Stenosis V10.82m/Sandra Mean GR.4mmHg V21.41m/Sandra Peak GR.8mmHg LVOT Diameter2.1 (1.8-2.4cm)Doppler AVA2.01cm2 Pulmonic Valve V20.88m/s Other Information Quality : Technically LimitedRhythm : Conclusion LVEF 50-55%, mild LVH. Mild diastolic dysfunction no significnat valve disease rv size and function normal
[2024-12-22] MEDS: MAGNESIUM SULFATE 1GM/100ML 100 ML IV SCH (13:44)
[2024-12-22] MEDS: POTASSIUM CHL 20 Meq TABLET PO ONE (13:49)
--- NOTE | 2024-12-22 13:55 | DVHINCON2 ---
Date Seen: Dec 22, 2024 Referring Physician Lynsey Reason for Consultation Hypertensive crisis History of Present Illness 34-year-old female with PMH for ETOH abuse, hypertension presents to the hospital with chest pain or shortness, elevated BP. Patient states she ran out of her blood pressure medication approximately 2 months prior and has been off ever since. Patient also endorsed that she took some pre workout for the gym that was high in caffeine and started to feel increased pressure on the chest noted that her blood pressure was significantly elevated. Upon presentation in the ER blood pressure ranging from 170s to 180s. Troponin negative x2. UDS negative. EKG reviewed and shows sinus tachycardia at 125 beats per minute, no acute ST and T-wave abnormality noted. Past Medical History As stated above Past Surgical History Denies previous surgical history Family History: FH: myocardial infarction GREAT GRANDMOTHER Hypercholesterolemia FATHER Hypertension GREAT GRANDMOTHER GRANDMOTHER Social History Previous heavy ETOH abuse for which she states has been sober for the last year, denies any illicit drug use or tobacco abuse. Allergies: Coded Allergies: Ciprofloxacin (Verified Allergy, Unknown, 05/27/23) Nitrofurantoin (Verified Allergy, Unknown, 05/27/23) Home Meds Active Scripts Naloxone HCl (Narcan) 4 Mg/0.1 Ml Spr, 4 MG NA CMV DRIVER, #2 SPRAY Prov:BRYANNA HOLLIS MD 05/05/24 Hydrocodone-Acetaminophen (Hydrocodone Bitartrate/AC 5-325 mg) 1 Tab Tab, 1 TAB PO Q8HPRN PRN, #10 TAB Prov:BRYANNA HOLLIS MD 05/05/24 Amoxicillin & Pot Clavulanate (AUGMENTIN TABLET) 875 Mg Tb, 875 MG PO BID for 7 Days, #14 TAB Prov:BRYANNA HOLLIS MD 05/05/24 Reported Medications Losartan Potassium & Hydrochlo (Hyzaar) 1 Tab Tab, 1 TAB PO DAILY, #30 TAB 5 Refills 05/03/24 Sertraline Hcl (Zoloft) 100 Mg Tab, 1 TAB PO DAILY, #30 TAB 5 Refills 05/03/24 Trazodone Hcl (Trazodone Hcl) 100 Mg Tab, 1 TAB PO QPM, #30 TAB 1 Refill 05/03/24 Hydroxyzine Hcl (Hydroxyzine Hcl) 50 Mg Tab, 1 TAB PO TID, #90 TAB 2 Refills 05/03/24 Labetalol HCl (Labetalol Hydrochloride) 200 Mg Tab, 200 MG PO BID, TAB 05/28/23 Current Medications Current Medications Medications (Trade) Dose Ordered Sig/Letfy Route PRN Reason Start Time Stop Time Status Last Admin Nicardipine HCl 250 ml @ 50 mls/hr Q5H IV 12/21/24 20:30 12/21/24 20:42 DC Nicardipine/ Sodium Chloride 200 ml @ 50 mls/hr Q4H IV 12/21/24 20:45 12/21/24 20:45 Ceftriaxone Sodium 50 ml @ 100 mls/hr DAILY@1800 IV 12/22/24 18:00 Labetalol HCl (Normodyne Tablet) 100 mg Q12HR PO 12/21/24 22:00 12/22/24 09:22 Amlodipine Besylate (Norvasc Tablet) 5 mg DAILY PO 12/22/24 10:00 12/22/24 09:24 Hydralazine HCl (Apresoline Injection) 10 mg Q6HP PRN IV SBP>150 12/21/24 21:00 12/22/24 02:44 DC Aspirin 81 mg DAILY PO 12/22/24 10:00 12/22/24 09:21 Trazodone HCl (Desyrel) 100 mg HS PO 12/21/24 22:00 Sertraline HCl (Zoloft) 100 mg DAILY PO 12/22/24 10:00 12/22/24 09:33 Sodium Chloride (Saline Lock Ns) 10 ml Q8HR IV 12/21/24 22:00 12/22/24 05:33 Acetaminophen/ Hydrocodone Bitart (Americus 5/325MG Tab) 1 tab Q4HP PRN PO MODERATE PAIN (4-6 PAIN SCALE) 12/21/24 21:00 12/22/24 09:27 Ondansetron HCl (Zofran) 4 mg Q4HP PRN IV NAUSEA / VOMITING 12/21/24 21:00 12/22/24 00:22 Docusate Sodium (Colace Capsule) 100 mg BIDPRN PRN PO FOR CONSTIPATION 12/21/24 21:00 Acetaminophen (Tylenol Tablet) 650 mg Q6HP PRN PO PAIN SCALE 1-3 OR TEMP>100.4 12/21/24 21:00 Nitroglycerin (Ntrostat Sublingual) 0.4 mg Q5MINP PRN SL FOR CHEST PAIN 12/21/24 22:45 Morphine Sulfate 2 mg Q30M PRN IV FOR CHEST PAIN 12/21/24 22:45 12/22/24 00:22 Clonidine HCl (Catapres Tablet) 0.1 mg Q4HP PRN PO SBP>150 12/22/24 02:30 Magnesium Sulfate/ Dextrose 100 ml @ 100 mls/hr Q1HR IV 12/22/24 14:00 12/22/24 16:59 Review of Systems Constitutional: No: Fever, Chills, Sweats, Weakness, Malaise, Other Eyes: No: Pain, Vision change, Conjunctivae inflammation, Eyelid inflammation, Other, Redness ENT: No: Ear pain, Ear discharge, Nose pain, Nose discharge, Nose congestion, Mouth pain, Mouth swelling, Throat pain, Throat swelling, Other Respiratory: No: Cough, Dry, Shortness of breath, SOB with exertion, Wheezing, Hemoptysis, Pleuritic Pain, Sputum, Wheezing, Other Cardiovascular: ; No: Chest Pain Palpitations, Orthopnea, Paroxysmal Noc. Dyspnea, Edema, Lt Headedness, Other Gastrointestinal: No: Nausea, Vomiting, Abdominal Pain, Diarrhea, Constipation, Melena, Hematochezia, Other Genitourinary: No Dysuria, No Frequency, No Incontinence, No Hematuria, No Retention, No Other Musculoskeletal: neck pain; No: other, shoulder pain, arm pain, back pain, hand pain, leg pain, foot pain Skin: No: Rash, Lesions, Jaundice, Bruising, Other Neurological: Other (Dizziness, headache.); No: Weakness, Numbness, Incoordination, Change in speech, Confusion, Seizures Vital Signs Vital Signs Date Time Temp Pulse Resp B/P (MAP) Pulse Ox O2 Delivery O2 Flow Rate FiO2 12/22/24 09:24 136/103 12/22/24 09:22 103 12/22/24 08:36 16 96 12/22/24 06:00 98.3 98.3 12/21/24 19:40 Room Air* 0 21 Physical Exam General appearance: Patient is well-developed, well-nourished, in no acute distress. HEENT: Exam shows: Normocephalic, atraumatic, PERRLA, EOMI Neck: Supple, no bruits Chest: Equal chest excursion bilaterally. Breath sounds normal-no rales or wheezes. Heart: Rhythm: Regular rate; no murmur or gallop Abdomen: Exam shows: Soft, nontender, nondistended Musculoskeletal: No clubbing, no cyanosis, no lower extremity edema Dermatology: Skin warm, moist. Neurological: Exam shows: Alert and oriented x4, normal speech Available prior records, labs, EKG, rhythm strips reviewed and interpreted Labs/Diagnostic Data Labs Test 12/22/24 05:15 12/21/24 18:14 12/21/24 17:05 12/21/24 17:00 Range/Units White Blood Count 7.3 # 4.4-10.8 10^3/uL Red Blood Count 4.45 4.0-5.20 10^6/uL Hemoglobin 13.6 12.2-16.2 g/dL Hematocrit 38.8 36.0-46.0 % Mean Corpuscular Volume 87.2 80.0-100.0 fL Mean Corpuscular Hemoglobin 30.7 28.0-32.0 pg Mean Corpuscular Hemoglobin Concent 35.2 32.0-36.0 g/dL Red Cell Distribution Width 13.4 11.8-14.3 % Platelet Count 344 140-450 10^3/uL Mean Platelet Volume 7.9 6.9-10.8 fL Neutrophils (%) (Auto) 55.7 37.0-80.0 % Lymphocytes (%) (Auto) 31.7 10.0-50.0 % Monocytes (%) (Auto) 10.3 0.0-12.0 % Eosinophils (%) (Auto) 1.6 0.0-7.0 % Basophils (%) (Auto) 0.7 0.0-2.0 % Neutrophils # (Auto) 4.1 1.6-8.6 10 ^3/uL Lymphocytes # (Auto) 2.3 0.4-5.4 10 ^3/uL Monocytes # (Auto) 0.8 0-1.3 10 ^3/uL Eosinophils # (Auto) 0.1 0-0.8 10 ^3/uL Basophils # (Auto) 0.1 0-0.2 10 ^3/uL Nucleated Red Blood Cells 0.4 % Sodium Level 141 136-145 mmol/L Potassium Level 3.1 L 3.5-5.1 mmol/L Chloride Level 102 98-107 mmol/L Carbon Dioxide Level 27 20-31 mmol/L Anion Gap 12 5-15 Blood Urea Nitrogen 13 9-23 mg/dL Creatinine 1.00 0.550-1.02 mg/dL Glomerular Filtration Rate Calc 76 >90 mL/min BUN/Creatinine Ratio 13.0 10.0-20.0 Serum Glucose 98 74-106 mg/dL Calcium Level 8.9 8.7-10.4 mg/dL Total Bilirubin 0.6 0.2-1.0 mg/dL Aspartate Amino Transferase (AST) 29 <34 U/L Alanine Aminotransferase (ALT) 23 7-40 U/L Alkaline Phosphatase 78 46-116 U/L Total Protein 7.3 5.7-8.2 g/dL Albumin 4.2 3.2-4.8 g/dL Troponin I High Sensitivity 4 </=34 ng/L Magnesium Level 1.4 L 1.6-2.6 mg/dL Urine Color Yellow Yellow Urine Clarity Hazy H Clear Urine pH 8.0 5.0-9.0 Urine Specific [place] 1.022 1.001-1.035 Urine Protein 1+ H Negative Urine Ketones Negative Negative Urine Blood Negative Negative /uL Urine Nitrite 2+ H Negative Urine Bilirubin Negative Negative Urine Urobilinogen Normal Negative mg/dL Urine Leukocyte Esterase 1+ Negative /uL Urine RBC 1 0 - 4 /hpf Urine Microscopic WBC 26 H 0-5 /HPF Urine Squamous Epithelial Cells Few <5 /hpf Urine Amorphous Crystals Few None Seen /hpf Urine Bacteria Few H None Seen /hpf Urine Mucus Few None Seen Urine Glucose Normal Normal mg/dL Urine Test Negative Negative Urine Opiates Screen Neg NEGATIVE Urine Fentanyl Screen Neg NEGATIVE Urine Barbiturates Screen Neg NEGATIVE Urine Phencyclidine Screen Neg NEGATIVE Urine Amphetamines Screen Neg NEGATIVE Urine Benzodiazepines Screen Neg NEGATIVE Urine Cocaine Screen Neg NEGATIVE Urine Cannabinoids Screen Neg NEGATIVE Microbiology Date/Time Source Procedure Growth Status 12/21/24 17:00 Voided Urine Urine Culture - Preliminary Resulted Assessment * Hypertensive crisis - BP better controlled, continue current regimen. * Medication noncompliance - advised compliance with medication. * Sinus tachycardia, palpitations - likely in setting of high caffeinated pre workout use. Continue telemetry monitoring. Check TSH. Echo reviewed and shows normal EF 50-55%, LVH, no significant valvular structural abnormalities. Case Discussed with Dr Carmen. Continue blood pressure control. Continue telemetry monitoring. Heart rate better controlled at this time. Normal EF on echo. If patient continues to have episodes of palpitations recommend outpatient follow up for event monitoring. No further cardiac workup indicated at this time. Please call for any concerns or questions. Critical care, time spent: 37 minutes This medical document was created using an electronic medical record system with voice recognition software and computerized dictation system. Although this document has been carefully reviewed, there might still be some phonetic and typographical errors. Occasional wrong-word or ``sound-alike substitutions may have occurred due to the inherent limitations of voice recognition software. These areas are purely typographical due to imperfections of the software programs and do not reflect any compromise in the patient's medical care. Please read the chart carefully and recognize, using context, where these substitutions have occurred. Thank you for allowing me to participate in the management of this patient. The treatment plan was discussed with and agreed upon by patient/family including requesting consultants and ordering of imaging/procedures. Plan discussed with: Patient NYHA Physical activity limitations: NA Date of Service: Dec 22, 2024 Billing Provider: NILE MONTGOMERY Cardiology Common Codes: [id number] INP/OBS CARE (High), [id number] CARE 30-74 MIN NILE MONTGOMERY Dec 22, 2024 13:55
[2024-12-22 14:26] VITALS: BP 122/65; PULSE 112; RESP 19; TEMP 98; O2SAT 97
--- NOTE | 2024-12-22 15:23 | DVHPN2 ---
Subjective I am assuming the care of the patient from today onwards. This is a follow up on 34-year-old female with a known history of hypertension ran out of blood pressure medication two months ago presented to the hospital with chest pain and palpitation after she had some pre workout powder. Also has sinus tachycardia. Changes from previous H/P or p: No Changes Eyes: No Pain, No Vision change, No Conjunctivae inflammation, No Eyelid inflammation, No Other, No Redness ENT: No Ear pain, No Ear discharge, No Nose pain, No Nose discharge, No Nose congestion, No Mouth pain, No Mouth swelling, No Throat pain, No Throat swelling, No Other Cardiovascular: No Chest Pain; Palpitations; No Orthopnea, No Paroxysmal Noc. Dyspnea, No Edema, No Lt Headedness; Other (Dizzy spells) Respiratory: No Cough, No Dry, No Shortness of breath, No SOB with excertion, No Wheezing, No Hemoptysis, No Pleuritic Pain, No Sputum, No Other Gastrointestinal: No Nausea, No Vomiting, No Abdominal Pain, No Diarrhea, No Constipation, No Melena, No Hematochezia, No Other Genitourinary: No Dysuria, No Frequency, No Incontinence, No Hematuria, No Retention, No Other Musculoskeletal: No other, No neck pain, No shoulder pain, No arm pain, No back pain, No hand pain, No leg pain, No foot pain Skin: No Rash, No Lesions, No Jaundice, No Bruising, No Other Objective Vitals Vital Signs Date Time Temp Pulse Resp B/P (MAP) Pulse Ox O2 Delivery O2 Flow Rate FiO2 12/22/24 14:26 98.0 112 19 122/65 (84) 97 98.0 12/21/24 19:40 Room Air* 0 21 Intake/Output Intake and Output 12/22/24 07:00 Intake Total 50 ml Balance 50 ml Intake IV Total 50 ml Exam HEENT pupils are reactive Neck is supple CV is S1-S2 regular rate and rhythm Respiratory are clear GI positive bowel sound Extremity no edema [employer] no motor deficit Medications Current Medications Medications Dose Ordered Sig/Lefty Route Start Time Stop Time Status Last Admin Dose Admin Nicardipine/ Sodium Chloride 200 ml @ 50 mls/hr Q4H IV 12/21/24 20:45 12/21/24 20:45 50 MLS/HR Ceftriaxone Sodium 50 ml @ 100 mls/hr DAILY@1800 IV 12/22/24 18:00 Labetalol HCl 100 mg Q12HR PO 12/21/24 22:00 12/22/24 09:22 100 MG Amlodipine Besylate 5 mg DAILY PO 12/22/24 10:00 12/22/24 09:24 5 MG Aspirin 81 mg DAILY PO 12/22/24 10:00 12/22/24 09:21 81 MG Trazodone HCl 100 mg HS PO 12/21/24 22:00 Sertraline HCl 100 mg DAILY PO 12/22/24 10:00 12/22/24 09:33 100 MG Sodium Chloride 10 ml Q8HR IV 12/21/24 22:00 12/22/24 05:33 10 ML Acetaminophen/ Hydrocodone Bitart 1 tab Q4HP PRN PO 12/21/24 21:00 12/22/24 14:06 1 TAB Ondansetron HCl 4 mg Q4HP PRN IV 12/21/24 21:00 12/22/24 00:22 4 MG Docusate Sodium 100 mg BIDPRN PRN PO 12/21/24 21:00 Acetaminophen 650 mg Q6HP PRN PO 12/21/24 21:00 Nitroglycerin 0.4 mg Q5MINP PRN SL 12/21/24 22:45 Morphine Sulfate 2 mg Q30M PRN IV 12/21/24 22:45 12/22/24 00:22 2 MG Clonidine HCl 0.1 mg Q4HP PRN PO 12/22/24 02:30 Magnesium Sulfate/ Dextrose 100 ml @ 100 mls/hr Q1HR IV 12/22/24 14:00 12/22/24 16:59 12/22/24 13:44 100 MLS/HR Laboratory Results Laboratory Tests 12/22/24 05:15 Chemistry Test 12/21/24 17:05 12/22/24 05:15 Albumin 4.8 g/dL (3.2-4.8) 4.2 g/dL (3.2-4.8) Calcium Level 9.8 mg/dL (8.7-10.4) 8.9 mg/dL (8.7-10.4) Magnesium Level 1.4 mg/dL (1.6-2.6) L Total Protein 8.2 g/dL (5.7-8.2) 7.3 g/dL (5.7-8.2) LFT Test 12/21/24 17:05 12/22/24 05:15 Alanine Aminotransferase (ALT) 31 U/L (7-40) 23 U/L (7-40) Alkaline Phosphatase 89 U/L (46-116) 78 U/L (46-116) Aspartate Amino Transferase (AST) 39 U/L (<34) H 29 U/L (<34) Total Bilirubin 0.5 mg/dL (0.2-1.0) 0.6 mg/dL (0.2-1.0) HgA1c, TSH Test 12/22/24 05:15 Thyroid Stimulating Hormone (TSH) 7.64 uIU/mL (0.55-4.78) H Urinalysis Test 12/21/24 17:00 Urine Color Yellow (Yellow) Urine Clarity Hazy (Clear) H Urine pH 8.0 (5.0-9.0) Urine Specific [place] 1.022 (1.001-1.035) Urine Protein 1+ (Negative) H Urine Ketones Negative (Negative) Urine Blood Negative /uL (Negative) Urine Nitrite 2+ (Negative) H Urine Bilirubin Negative (Negative) Urine Urobilinogen Normal mg/dL (Negative) Urine Leukocyte Esterase 1+ /uL (Negative) Urine RBC 1 /hpf (0 - 4) Urine Microscopic WBC 26 /HPF (0-5) H Urine Squamous Epithelial Cells Few /hpf (<5) Urine Amorphous Crystals Few /hpf (None Seen) Urine Bacteria Few /hpf (None Seen) H Urine Mucus Few (None Seen) Urine Glucose Normal mg/dL (Normal) Urine Test Negative (Negative) Microbiology Microbiology Date/Time Source Procedure Growth Status 12/21/24 17:00 Voided Urine Urine Culture - Preliminary Resulted Assessment/Plan Assessment/Plan 34-year-old female with a known history of hypertension currently in a ran out of blood pressure medication two months ago, she had pre workout before the gym started having chest pain and palpitation and elevated blood pressure found to have 1. Hypertensive urgency 2. Sinus tachycardia rule out hyperthyroidism 3. UTI 4. Noncompliance 5. Morbid obesity classI -2D echo, cardiology consultation, check TSH free T4 free T3, IV antibiotics. Plan discussed with: Patient My Orders Orders - BRYANNA HOLLIS MD Procedure Category Date Status Time Free T4 (Free LAB 12/22/24 Transmitted Thyroxine) 15:19 Free T3 LAB 12/22/24 Transmitted 15:19 Date of Service: Dec 22, 2024 Billing Provider: BRYANNA HOLLIS MD Common Visit Codes: [id number] INP/OBS CARE(MOD) BRYANNA HOLLIS MD Dec 22, 2024 15:23
[2024-12-22] MEDS ORDERED: PRAZ1CAP2 PO (16:04)
[2024-12-22 18:00] VITALS: BP 140/94; PULSE 94; RESP 18; TEMP 97.7; O2SAT 97
[2024-12-22] MEDS: cefTRIAXone 1GM/50ML D5W 50 ML IV SCH (18:57)
[2024-12-22 20:00] VITALS: PULSE 106; PULSE 98; RESP 18; O2SAT 99
[2024-12-22 21:00] VITALS: BP 126/86; PULSE 98; RESP 18; TEMP 97.9; O2SAT 99
[2024-12-22] MEDS: DOCUSATE SOD 100 MG CAP PO PRN (21:10)
--- NOTE | 2024-12-22 23:33 | DVHINCON2 ---
Date Seen: Dec 22, 2024 Referring Physician Lynsey Reason for Consultation Hypertensive crisis History of Present Illness This is a 34-year-old female with a PMH of ETOH abuse, hypertension presents to the ED with complaints of chest pain with shortness of breath and elevated BP. Patient states she ran out of her blood pressure medication approximately 2 months prior and has been off ever since. Patient also endorsed that she took some pre workout for the gym that was high in caffeine and started to feel increased pressure on the chest noted that her blood pressure was significantly elevated. Upon presentation in the ER blood pressure ranging from 170s to 180s. Troponin negative x2. UDS negative. EKG reviewed and shows sinus tachycardia at 125 beats per minute, no acute ST and T-wave abnormality noted. Chest x-ray showed NAD. CT head showed no acute intracranial abnormality. Patient was admitted to the hospital. I am asked to consult on this patient. Past Medical History As stated above Past Surgical History Denies previous surgical history Family History: FH: myocardial infarction GREAT GRANDMOTHER Hypercholesterolemia FATHER Hypertension GREAT GRANDMOTHER GRANDMOTHER Allergies: Coded Allergies: Ciprofloxacin (Verified Allergy, Unknown, 05/27/23) Nitrofurantoin (Verified Allergy, Unknown, 05/27/23) Home Meds Active Scripts Naloxone HCl (Narcan) 4 Mg/0.1 Ml Spr, 4 MG NA AUTOMOTIVE DETAILER, #2 SPRAY Prov:BRYANNA HOLLIS MD 05/05/24 Reported Medications Prazosin Hcl (Minipres) 1 Mg Cp, 1 CAP PO QPM, #30 CAP 2 Refills 12/22/24 Losartan Potassium & Hydrochlo (Hyzaar) 1 Tab Tab, 1 TAB PO DAILY, #30 TAB 5 Refills 05/03/24 Sertraline Hcl (Zoloft) 100 Mg Tab, 1 TAB PO DAILY, #30 TAB 5 Refills 05/03/24 Trazodone Hcl (Trazodone Hcl) 100 Mg Tab, 1 TAB PO QPM, #30 TAB 1 Refill 05/03/24 Hydroxyzine Hcl (Hydroxyzine Hcl) 50 Mg Tab, 1 TAB PO TID, #90 TAB 2 Refills 05/03/24 Current Medications Current Medications Medications (Trade) Dose Ordered Sig/Lefty Route PRN Reason Start Time Stop Time Status Last Admin Nicardipine HCl 250 ml @ 50 mls/hr Q5H IV 12/21/24 20:30 12/21/24 20:42 DC Nicardipine/ Sodium Chloride 200 ml @ 50 mls/hr Q4H IV 12/21/24 20:45 12/22/24 16:27 DC 12/21/24 20:45 Ceftriaxone Sodium 50 ml @ 100 mls/hr DAILY@1800 IV 12/22/24 18:00 Labetalol HCl (Normodyne Tablet) 100 mg Q12HR PO 12/21/24 22:00 12/22/24 09:22 Amlodipine Besylate (Norvasc Tablet) 5 mg DAILY PO 12/22/24 10:00 12/22/24 09:24 Hydralazine HCl (Apresoline Injection) 10 mg Q6HP PRN IV SBP>150 12/21/24 21:00 12/22/24 02:44 DC Aspirin 81 mg DAILY PO 12/22/24 10:00 12/22/24 09:21 Trazodone HCl (Desyrel) 100 mg HS PO 12/21/24 22:00 Sertraline HCl (Zoloft) 100 mg DAILY PO 12/22/24 10:00 12/22/24 09:33 Sodium Chloride (Saline Lock Ns) 10 ml Q8HR IV 12/21/24 22:00 12/22/24 05:33 Acetaminophen/ Hydrocodone Bitart ([place] 5/325MG Tab) 1 tab Q4HP PRN PO MODERATE PAIN (4-6 PAIN SCALE) 12/21/24 21:00 12/22/24 14:06 Ondansetron HCl (Zofran) 4 mg Q4HP PRN IV NAUSEA / VOMITING 12/21/24 21:00 12/22/24 00:22 Docusate Sodium (Colace Capsule) 100 mg BIDPRN PRN PO FOR CONSTIPATION 12/21/24 21:00 Acetaminophen (Tylenol Tablet) 650 mg Q6HP PRN PO PAIN SCALE 1-3 OR TEMP>100.4 12/21/24 21:00 Nitroglycerin (Ntrostat Sublingual) 0.4 mg Q5MINP PRN SL FOR CHEST PAIN 12/21/24 22:45 Morphine Sulfate 2 mg Q30M PRN IV FOR CHEST PAIN 12/21/24 22:45 12/22/24 00:22 Clonidine HCl (Catapres Tablet) 0.1 mg Q4HP PRN PO SBP>150 12/22/24 02:30 Magnesium Sulfate/ Dextrose 100 ml @ 100 mls/hr Q1HR IV 12/22/24 14:00 12/22/24 16:59 DC 12/22/24 16:08 Review of Systems Constitutional: No: Fever, Chills, Sweats, Weakness, Malaise, Other Eyes: No: Pain, Vision change, Conjunctivae inflammation, Eyelid inflammation, Other, Redness ENT: No: Ear pain, Ear discharge, Nose pain, Nose discharge, Nose congestion, Mouth pain, Mouth swelling, Throat pain, Throat swelling, Other Respiratory: No: Cough, Dry, Shortness of breath, SOB with exertion, Wheezing, Hemoptysis, Pleuritic Pain, Sputum, Wheezing, Other Cardiovascular: ; No: Chest Pain Palpitations, Orthopnea, Paroxysmal Noc. Dyspnea, Edema, Lt Headedness, Other Gastrointestinal: No: Nausea, Vomiting, Abdominal Pain, Diarrhea, Constipation, Melena, Hematochezia, Other Genitourinary: No Dysuria, No Frequency, No Incontinence, No Hematuria, No Ret ention, No Other Musculoskeletal: neck pain; No: other, shoulder pain, arm pain, back pain, hand pain, leg pain, foot pain Skin: No: Rash, Lesions, Jaundice, Bruising, Other Neurological: Other (Dizziness, headache.); No: Weakness, Numbness, Incoordinat ion, Change in speech, Confusion, Seizures Vital Signs Vital Signs Date Time Temp Pulse Resp B/P (MAP) Pulse Ox O2 Delivery O2 Flow Rate FiO2 12/22/24 14:26 98.0 112 19 122/65 (84) 97 98.0 12/21/24 19:40 Room Air* 0 21 Physical Exam GENERAL: Alert and oriented x 3. No acute distress. EYES: PERRL, EOMI. Anicteric. HENT: Moist mucous membranes. LUNGS: Clear to auscultation bilaterally. CARDIOVASCULAR: Regular rate and rhythm. ABDOMEN: Soft, nontender and nondistended. EXTREMITIES: No edema. NEUROLOGIC: No focal neurological deficits. SKIN: Warm, dry. Labs/Diagnostic Data Labs Test 12/22/24 05:15 12/21/24 18:14 12/21/24 17:05 12/21/24 17:00 Range/Units White Blood Count 7.3 # 4.4-10.8 10^3/uL Red Blood Count 4.45 4.0-5.20 10^6/uL Hemoglobin 13.6 12.2-16.2 g/dL Hematocrit 38.8 36.0-46.0 % Mean Corpuscular Volume 87.2 80.0-100.0 fL Mean Corpuscular Hemoglobin 30.7 28.0-32.0 pg Mean Corpuscular Hemoglobin Concent 35.2 32.0-36.0 g/dL Red Cell Distribution Width 13.4 11.8-14.3 % Platelet Count 344 140-450 10^3/uL Mean Platelet Volume 7.9 6.9-10.8 fL Neutrophils (%) (Auto) 55.7 37.0-80.0 % Lymphocytes (%) (Auto) 31.7 10.0-50.0 % Monocytes (%) (Auto) 10.3 0.0-12.0 % Eosinophils (%) (Auto) 1.6 0.0-7.0 % Basophils (%) (Auto) 0.7 0.0-2.0 % Neutrophils # (Auto) 4.1 1.6-8.6 10 ^3/uL Lymphocytes # (Auto) 2.3 0.4-5.4 10 ^3/uL Monocytes # (Auto) 0.8 0-1.3 10 ^3/uL Eosinophils # (Auto) 0.1 0-0.8 10 ^3/uL Basophils # (Auto) 0.1 0-0.2 10 ^3/uL Nucleated Red Blood Cells 0.4 % Sodium Level 141 136-145 mmol/L Potassium Level 3.1 L 3.5-5.1 mmol/L Chloride Level 102 98-107 mmol/L Carbon Dioxide Level 27 20-31 mmol/L Anion Gap 12 5-15 Blood Urea Nitrogen 13 9-23 mg/dL Creatinine 1.00 0.550-1.02 mg/dL Glomerular Filtration Rate Calc 76 >90 mL/min BUN/Creatinine Ratio 13.0 10.0-20.0 Serum Glucose 98 74-106 mg/dL Calcium Level 8.9 8.7-10.4 mg/dL Total Bilirubin 0.6 0.2-1.0 mg/dL Aspartate Amino Transferase (AST) 29 <34 U/L Alanine Aminotransferase (ALT) 23 7-40 U/L Alkaline Phosphatase 78 46-116 U/L Total Protein 7.3 5.7-8.2 g/dL Albumin 4.2 3.2-4.8 g/dL Thyroid Stimulating Hormone (TSH) 7.64 H 0.55-4.78 uIU/mL Troponin I High Sensitivity 4 </=34 ng/L Magnesium Level 1.4 L 1.6-2.6 mg/dL Urine Color Yellow Yellow Urine Clarity Hazy H Clear Urine pH 8.0 5.0-9.0 Urine Specific [place] 1.022 1.001-1.035 Urine Protein 1+ H Negative Urine Ketones Negative Negative Urine Blood Negative Negative /uL Urine Nitrite 2+ H Negative Urine Bilirubin Negative Negative Urine Urobilinogen Normal Negative mg/dL Urine Leukocyte Esterase 1+ Negative /uL Urine RBC 1 0 - 4 /hpf Urine Microscopic WBC 26 H 0-5 /HPF Urine Squamous Epithelial Cells Few <5 /hpf Urine Amorphous Crystals Few None Seen /hpf Urine Bacteria Few H None Seen /hpf Urine Mucus Few None Seen Urine Glucose Normal Normal mg/dL Urine Test Negative Negative Urine Opiates Screen Neg NEGATIVE Urine Fentanyl Screen Neg NEGATIVE Urine Barbiturates Screen Neg NEGATIVE Urine Phencyclidine Screen Neg NEGATIVE Urine Amphetamines Screen Neg NEGATIVE Urine Benzodiazepines Screen Neg NEGATIVE Urine Cocaine Screen Neg NEGATIVE Urine Cannabinoids Screen Neg NEGATIVE Microbiology Date/Time Source Procedure Growth Status 12/21/24 17:00 Voided Urine Urine Culture - Preliminary Resulted Assessment Hypertensive crisis. Medication noncompliance. Sinus tachycardia, palpitations. Plan/Recommendation I agree with your ongoing assessment and care of plan. Patient has been seen by Edward Gomez NP on my behalf, him and I discussed the plan with the patient. Continue telemetry monitoring. Continue blood pressure control. If patient continues to have episodes of palpitations recommend outpatient follow up for event monitoring. Advised compliance with medication. Check TSH. Echo reviewed and shows normal EF 50-55%, LVH, no significant valvular structural abnormalities. IV antibiotics as ordered. Amlodipine, Losartan, Labetalol. Aspirin. [place] for pain management. Additional plan as per the hospital course. Plan discussed with: Patient NYHA Physical activity limitations: NA Date of Service: Dec 22, 2024 Billing Provider: DALIA BRIDGES MD Cardiology Common Codes: [id number] INP/OBS CARE (High) Cardiology Consultation Codes: [id number] CONSULT <45MIN DALIA BRIDGES MD Dec 22, 2024 17:17
[2024-12-23 01:00] VITALS: BP 112/80; PULSE 94; RESP 20; TEMP 98.5; O2SAT 96
[2024-12-23 05:00] VITALS: BP 117/87; PULSE 97; RESP 18; TEMP 98.8; O2SAT 98
[2024-12-23 08:00] VITALS: PULSE 89
[2024-12-23 09:29] VITALS: BP 135/97; PULSE 86; RESP 16; TEMP 97.7; O2SAT 96
[2024-12-23 11:21] LABS: Free T3 3.78 pg/mL (2.3-4.2)
[2024-12-23 11:23] LABS: Free T4 (Free Thyroxine) 1.41 ng/dL (0.89-1.76)
--- NOTE | 2024-12-23 12:48 | DVH ---
Indication: left kidney pain Technique: CT axial images of the abdomen and pelvis are obtained without contrast. Coronal and sagit jeanne reformats were obtained. Radiation Dose Information: CTDI volume is 20.03 mGy. Dose-length product is 1169.3 mGy*cm Comparison: None FINDINGS: There is limited interpretation of the abdomen and pelvis without administration of intravenous contr ast. The lung bases demonstrate no pleural effusion. Adrenal glands, spleen, pancreas unremarkable in shape. Cholecystectomy. Liver unremarkable in shap e. Nonobstructing right renal calculi 2 mm. Nonobstructing left renal calculi up to 3 mm. Stomach is partially distended. Small bowel loops are demonstrating fecal like contents distally Moderate volume stool in the colon. Appendix removed. Bladder partially distended. No free pelvic fluid. No inguinal lymphadenopathy. No aggressive osseous process. IMPRESSION: Nonobstructing left renal calculi up to 3 mm and right renal calculi up to 2 mm. Moderate volume stool within the colon. Fecal like contents within the small bowel which can be seen with ileus, hypomotility, bowel obstruction.
[2024-12-23 13:17] VITALS: BP 125/86; PULSE 94; RESP 16; TEMP 98.2; O2SAT 98
[2024-12-23] MEDS ORDERED: HYDR25TA5 GT (13:22)
[2024-12-23] MEDS ORDERED: HYDR-4902 PO (13:22)
[2024-12-23] MEDS ORDERED: LABE200T10 PO (13:22)
[2024-12-23] MEDS ORDERED: CEFD300C2 PO (13:22)
--- NOTE | 2024-12-23 14:23 | DVHDS2 ---
Discharge Summary Date of Admission Dec 21, 2024 at 22:32 Date of Discharge: Dec 23, 2024 Labs/Diagnostic Data: Laboratory Results Test 12/22/24 05:15 12/21/24 18:14 12/21/24 17:05 12/21/24 17:00 White Blood Count 7.3 10^3/uL (4.4-10.8) Red Blood Count 4.45 10^6/uL (4.0-5.20) Hemoglobin 13.6 g/dL (12.2-16.2) Hematocrit 38.8 % (36.0-46.0) Mean Corpuscular Volume 87.2 fL (80.0-100.0) Mean Corpuscular Hemoglobin 30.7 pg (28.0-32.0) Mean Corpuscular Hemoglobin Concent 35.2 g/dL (32.0-36.0) Red Cell Distribution Width 13.4 % (11.8-14.3) Platelet Count 344 10^3/uL (140-450) Mean Platelet Volume 7.9 fL (6.9-10.8) Neutrophils (%) (Auto) 55.7 % (37.0-80.0) Lymphocytes (%) (Auto) 31.7 % (10.0-50.0) Monocytes (%) (Auto) 10.3 % (0.0-12.0) Eosinophils (%) (Auto) 1.6 % (0.0-7.0) Basophils (%) (Auto) 0.7 % (0.0-2.0) Neutrophils # (Auto) 4.1 10 ^3/uL (1.6-8.6) Lymphocytes # (Auto) 2.3 10 ^3/uL (0.4-5.4) Monocytes # (Auto) 0.8 10 ^3/uL (0-1.3) Eosinophils # (Auto) 0.1 10 ^3/uL (0-0.8) Basophils # (Auto) 0.1 10 ^3/uL (0-0.2) Nucleated Red Blood Cells 0.4 % Sodium Level 141 mmol/L (136-145) Potassium Level 3.1 mmol/L (3.5-5.1) Chloride Level 102 mmol/L (98-107) Carbon Dioxide Level 27 mmol/L (20-31) Anion Gap 12 (5-15) Blood Urea Nitrogen 13 mg/dL (9-23) Creatinine 1.00 mg/dL (0.550-1.02) Glomerular Filtration Rate Calc 76 mL/min (>90) BUN/Creatinine Ratio 13.0 (10.0-20.0) Serum Glucose 98 mg/dL (74-106) Calcium Level 8.9 mg/dL (8.7-10.4) Total Bilirubin 0.6 mg/dL (0.2-1.0) Aspartate Amino Transferase (AST) 29 U/L (<34) Alanine Aminotransferase (ALT) 23 U/L (7-40) Alkaline Phosphatase 78 U/L (46-116) Total Protein 7.3 g/dL (5.7-8.2) Albumin 4.2 g/dL (3.2-4.8) Thyroid Stimulating Hormone (TSH) 7.64 uIU/mL (0.55-4.78) Free Thyroxine (T4) Calculated 1.41 ng/dL (0.89-1.76) Free Triiodothyronine (T3) pg/mL 3.78 pg/mL (2.3-4.2) Troponin I High Sensitivity 4 ng/L (</=34) Magnesium Level 1.4 mg/dL (1.6-2.6) Urine Color Yellow (Yellow) Urine Clarity Hazy (Clear) Urine pH 8.0 (5.0-9.0) Urine Specific [place] 1.022 (1.001-1.035) Urine Protein 1+ (Negative) Urine Ketones Negative (Negative) Urine Blood Negative /uL (Negative) Urine Nitrite 2+ (Negative) Urine Bilirubin Negative (Negative) Urine Urobilinogen Normal mg/dL (Negative) Urine Leukocyte Esterase 1+ /uL (Negative) Urine RBC 1 /hpf (0 - 4) Urine Microscopic WBC 26 /HPF (0-5) Urine Squamous Epithelial Cells Few /hpf (<5) Urine Amorphous Crystals Few /hpf (None Seen) Urine Bacteria Few /hpf (None Seen) Urine Mucus Few (None Seen) Urine Glucose Normal mg/dL (Normal) Urine Test Negative (Negative) Urine Opiates Screen Neg (NEGATIVE) Urine Fentanyl Screen Neg (NEGATIVE) Urine Barbiturates Screen Neg (NEGATIVE) Urine Phencyclidine Screen Neg (NEGATIVE) Urine Amphetamines Screen Neg (NEGATIVE) Urine Benzodiazepines Screen Neg (NEGATIVE) Urine Cocaine Screen Neg (NEGATIVE) Urine Cannabinoids Screen Neg (NEGATIVE) Other Laboratory Tests 12/22/24 05:15 Brief Hx & Hospital Course: 34-year-old female with a known history of hypertension currently in a ran out of blood pressure medication two months ago, she had pre workout before the gym started having chest pain and palpitation and elevated blood pressure found to have hypertensive urgency and sinus tachycardia. Patient was also found to have UTI. Patient was treated with the IV antibiotics and medication for blood pressure was adjusted. Cardiology was consulted patient is currently cleared to be discharged on beta aure and hydrochlorothiazide. Patient was ruled out for hyperthyroidism. Diet weight reduction and exercise counseling was discussed with the patient follow up because of morbid obesity class one. Patient's UTI was treated. Patient requesting CT abdomen and pelvis as she has a known history of kidney stones. Underwent CT abdomen and pelvis which shows nonobstructing left and right renal calculi stone left being 3 mm right being right 2 mm. Patient is currently asymptomatic and stable to be discharged with a close follow up as an outpatient with the PCP. Condition at Discharge: Stable Final Diagnosis/Problems List 34-year-old female with a known history of hypertension currently in a ran out of blood pressure medication two months ago, she had pre workout before the gym started having chest pain and palpitation and elevated blood pressure found to have 1. Hypertensive urgency 2. Sinus tachycardia rule out hyperthyroidism 3. UTI 4. Noncompliance 5. Morbid obesity classI Discharge Disposition: Home SNF Discharge Will this Physician continue t: No Discharge Instruct/Medications Diet: Cardiac 2g Na,low cholest Activity: See Comment Activity comment: No driving, no playing on heavy machinery, no signing legal documents while on narcotics. Follow Up/Referral: Follow up with the PCP in one week Medications: Medication as prescribed and reconciled Discharge Statement: "Patient was advised to return to the ER or call 911 if any headaches, dizziness, shortness of breath, chest pain, abdominal pain, bleeding, fevers, or worsening of medical condition. Patient was counseled about treatment plan, medications, possible side effects, patientverbalized understanding. All questions were answered to the best of my ability. This discharge took greater then 30 minutes in planning, reviewing documentation, counseling the patient, and discussing with other team members." ASSESSMENT ASSESSMENT Assessment 34-year-old female with a known history of hypertension currently in a ran out of blood pressure medication two months ago, she had pre workout before the gym started having chest pain and palpitation and elevated blood pressure found to have 1. Hypertensive urgency 2. Sinus tachycardia rule out hyperthyroidism 3. UTI 4. Noncompliance 5. Morbid obesity classI Date of Service: Dec 23, 2024 Billing Provider: BRYANNA HOLLIS MD Common Visit Codes: 10685-BCS/OBS DISCH DAY >30min BRYANNA HOLLIS MD Dec 23, 2024 14:23
[2024-12-23 16:35] VITALS: BP 132/93; PULSE 91; RESP 18; TEMP 98.1; O2SAT 97
--- NOTE | 2024-12-23 22:19 | DVHPN2 ---
Progress Note - Dictate Date Seen: Dec 23, 2024 Medical Necessity Reason Pt with a Central, PICC or Fol: No Subjective Patient was seen and evaluated in follow up. BP improved. Echo reviewed and shows normal EF 50-55%, LVH, no significant valvular structural abnormalities. Patient is cardiac stable for discharge. Telemetry reviewed. vital signs Vital Sign Date Time Temp Pulse Resp B/P (MAP) Pulse Ox O2 Delivery O2 Flow Rate FiO2 12/23/24 16:35 98.1 91 18 132/93 (106) 97 98.1 12/23/24 08:00 Room Air* 0 21 Total Intake and Output 12/22/24 12/22/24 12/23/24 15:00 23:00 07:00 Intake Total 100 ml 650 ml 600 ml Balance 100 ml 650 ml 600 ml objective GENERAL: Alert and oriented x 3. No acute distress. EYES: PERRL, EOMI. Anicteric. HENT: Moist mucous membranes. LUNGS: Clear to auscultation bilaterally. CARDIOVASCULAR: Regular rate and rhythm. ABDOMEN: Soft, nontender and nondistended. EXTREMITIES: No edema. NEUROLOGIC: No focal neurological deficits. SKIN: Warm, dry. laboratory and microbiology Laboratory Tests 12/22/24 05:15 Test 12/22/24 05:15 Range/Units Serum Glucose 98 74-106 mg/dL Problem List Hypertensive crisis. Medication noncompliance. Sinus tachycardia, palpitations. Assessment/Plan Continued all current supportive medical care. IV antibiotics as ordered. Amlodipine, Losartan, Labetalol. Aspirin. [place] for pain management. Additional plan as per the hospital course. Plan discussed with: Patient DALIA BRIDGES MD Dec 23, 2024 22:19
== END 2024-12-23 17:48 | disposition home or self-care (01) | DRG 305 ==
LOC: ER 16:57 → OVERFLOW 22:32 → EAST 12-22 17:59
PROVIDERS: ADMIT Internal Medicine; ATTEND Internal Medicine
DX: I16.0 Hypertensive urgency (principal); N39.0 Urinary tract infection, site not specified; I10 Essential (primary) hypertension; E66.811 Obesity, class 1; Z68.30 Body mass index [BMI] 30.0-30.9, adult; E11.9 Type 2 diabetes mellitus without complications; R00.0 Tachycardia, unspecified; N20.0 Calculus of kidney; Z91.148 Patient's other noncompliance with medication regimen for other reason; Z90.49 Acquired absence of other specified parts of digestive tract; Z88.1 Allergy status to other antibiotic agents; Z87.442 Personal history of urinary calculi; Z82.49 Family history of ischemic heart disease and other diseases of the circulatory system; Z83.49 Family history of other endocrine, nutritional and metabolic diseases
CPT/HCPCS: 36415; 70450; 71045; 74176; 80053; 80307; 81001; 81025; 83735; 84439; 84443; 84481; 84484; 85025; 87086; 93005; 93306; 96365; 96375; G0378; J2405